=== PATIENT | male | born 1930 | race Caucasian/White ===

== ENCOUNTER → 2016-04-14 | Outpatient (CLI) | payer MEDICARE, OTHER ==
[~2016-04-14] MED LIST: ACET-2267 PO; ACHYD1T PO; ASPI-983 PO; CLOP75TA28 PO; DONE10TA12 PO; DOXY100C42 PO; ENOX40DI8 SC; ESCI10TA PO; FENO135C PO; FENO135C4 PO; FURO40TA4 PO; GLMP4T PO; GUAI5SYR PO; HYDR453.3 TOP; INSU100I14 SC; INSU100I5 SC; INSU100V16 SC; INSU100V16 SQ; INSU100V5 SC; INSU100V5 SQ; INSU100V6 SQ; LIRA0.6P SQ; MAG30ORA2 PO; METO-272 PO; MTF500T PO; MULT-166 PO; OLME20TA5 PO; ONDA4TAB8 PO; PHEN100T26 PO; PHEN200T27 PO; POVI3780 TP; PROM25SU43 RC; RIVA1PAT3 TD; RIVA6CAP5 PO; SERT100T8 PO; SULF-222 PO; TOLTA4 PO
--- NOTE | 2016-04-14 15:20 | Diagnostic Imaging Report ---
PROCEDURE: US Bilateral lower extremity arterial. TECHNIQUE: Multiple real-time grayscale images are obtained through both lower extremity arterial systems with color Doppler imaging and color Doppler spectral analysis. INDICATION: Left foot ulcer. COMPARISON: There are no previous studies available for comparison. FINDINGS: There is fairly good arterial blood flow in the left common femoral, superficial femoral, and popliteal arteries. Biphasic waveforms are seen within these vessels and there is no abrupt alteration of the velocities to suggest a hemodynamically significant stenosis. However, there does seem to be diminished velocity in the trifurcation arteries on the left and the waveforms are dampened and monophasic. I am concerned that this is secondary to trifurcation disease. There is fairly good arterial blood flow through the right lower extremity. Triphasic and biphasic waveforms are seen and there is no abrupt alteration to suggest a hemodynamically significant stenosis. IMPRESSION: 1. There does appear to be diminished arterial blood flow to the left lower leg. Most likely, this is due to a hemodynamically significant stenosis involving the trifurcation. If further imaging is desired, then CTA of the aorta with bilateral runoffs would be recommended. 2. There is no evidence for hemodynamically significant stenosis of the right lower extremity. Dictated by: Dictated on workstation # [id number]
== END ==
LOC: RAD 13:45
PROVIDERS: ATTEND Surgery
DX: L97.522 Non-pressure chronic ulcer of other part of left foot with fat layer exposed (principal); I73.9 Peripheral vascular disease, unspecified
CPT/HCPCS: 93925

== ENCOUNTER 2016-06-09 10:36 | Inpatient (IN) | payer MEDICARE, OTHER ==
[~2016-06-09] VITALS: Ht 188 cm; Wt 98.8 kg
[~2016-06-09 10:36] MED LIST changes: -ASPI-983 PO; -CLOP75TA28 PO; -DONE10TA12 PO; -DOXY100C42 PO; -ENOX40DI8 SC; -INSU100V6 SQ; -POVI3780 TP
[2016-06-09] MEDS ORDERED: PIPERACILLIN/TAZOBACTAM 4.5 GM/NS100 ML IVPB IV NR ×2 (11:30)
--- NOTE | 2016-06-09 11:42 | Consultation-Cardiology ---
HPI-Cardiology Cardiology Consultation: Date of Consultation 06/09/16 Date of Admission 06-09-16 Attending Physician Felton Mejia MD Admitting Physician Felton Mejia MD Consulting Physician Alex Mccarthy MD HPI: Chief Complaint: Left foot non-healing wound Mr. Pierce is an 85 year old male admitted to [facility] from [facility] where he resides. He has been following with Dr. Arndt d/t a non-healing left foot ulcer. The patient is unclear on how long he has had the wound. He states he is able to ambulate with the assistance of a walker. He does not report any dyspnea, palpitations or chest pain. Review of Systems-Cardiology Review of Systems Constitutional: As described under HPI Eyes: No blurred vision, No drainage, No pain, No vision change Ears/Nose/Throat: No ear discharge, No ear pain, No nasal drainage, No ulcerations Respiratory: As described under HPI Cardiovascular: As described under HPI Gastrointestinal: No constipation, No diarrhea, No nausea, No vomiting, No stool coloration changes Genitourinary: No dysuria, No discharge, No frequency, No hematuria, No urgency Skin: No rash, other (non-healing ulcer to left foot), No skin related problems Psychiatric/Neurological: No anxiety, No depression, No focal weakness, No seizure, No syncope Hematologic: No bleeding abnormalities XID-Ujcsnu-Wrbpuc Hx Patient Social History Alcohol Use: Denies Use Recreational Drug Use: No Smoking Status: Never a Smoker Recent Foreign Travel: No Recent Infectious Disease Expo: No Hospitalization with Isolation: Denies Physical Abuse Screen: No Sexual Abuse: No Immunizations Up To Date Tetanus Booster (TDap): Unknown Date of Pneumonia Vaccine: Feb 02, 2012 Date of Influenza Vaccine: Nov 18, 2014 Past Medical History PMH As described under Assessment. Family Medical History Family Medical History: He denies any family h/o CAD. Family History: Patient reports no known family medical history. Allergies and Home Medications Allergies Coded Allergies: NKANo Known Allergies (Verified Allergy, Unknown, 01/15/07) Home Medications Acetaminophen 500 Mg Tablet, 1,000 MG PO Q4H PRN for PAIN, (Reported) TAKES 2 (500MG) TABLETS Escitalopram Oxalate 10 Mg Tablet, 10 MG PO DAILY, (Reported) Fenofibric Acid (Choline) 135 Mg Capsule.dr, 135 MG PO DAILY, (Reported) Guaifenesin/Dextromethorphan 5 Ml Syrup, 10 ML PO Q4H PRN for COUGH, (Reported) Hydrocortisone 453.6 Gm Cream..g., TOP DAILY PRN for DERMATITIS, (Reported) Insulin Aspart 100 Unit/1 Ml Insuln.pen, 30 UNIT SC DAILY @ 0730, (Reported) Insulin Aspart 100 Unit/1 Ml Susp, 15 UNITS SC DAILY @ 1700, (Reported) Insulin Aspart 100 Unit/1 Ml Susp, 25 UNIT SQ DAILY @ 1130, (Reported) Insulin Determir 1,000 Units/10 Ml Soln, 55 UNITS SQ DAILY, (Reported) Insulin Determir 1,000 Units/10 Ml Soln, 35 UNITS SC DAILY @ 1700, (Reported) Mag Hydrox/Al Hydrox/Simeth 30 Ml Oral.susp, 20 ML PO Q4H PRN for INDIGESTION, ( Reported) Multivitamin with Minerals 1 Each Tablet, 1 TAB PO DAILY, (Reported) Ondansetron 4 Mg Tab.rapdis, 4 MG PO Q4H, #10 Prescribed by: EDIN LEON on 09/19/152138 Phenazopyridine Hcl 200 Mg Tablet, 200 MG PO TID PRN for URINARY PAIN, (Reported ) Rivastigmine Tartrate 6 Mg Capsule, 6 MG PO BID, (Reported) Physical Exam-Cardiology Physical Exam Vital Signs/I&O Vital Sign - Last 12Hours 06/09/16 12:00 Temp 96.6 Pulse 79 Resp 22 B/P (MAP) 137/68 Pulse Ox 99 O2 Delivery Room Air Capillary Refill : Constitutional: appears stated age, No apparent distress, well-developed, well- nourished HEENT: PERRL, No discharge, hearing is well preserved, oral hygience is good, No ulceration, No xanthelasmas are seen Neck: No carotid bruit, carotid pulses are 2 + bilaterally Respiratory: No accessory muscle use, No respiratory distress, lungs clear to auscultation Cardiovascular: regular rate-rhythm, No JVD, S1 and S2 Gastrointestinal: No tender, soft, round, No spleenomegaly Extremities: No clubbing, No cyanosis, No significant edema, wound (left foot; dressing D&I; dressing not removed - foul odor is noted though) Neurologic/Psychiatric: alert, oriented x 3, power is 5/5 both on sides Skin: No rash, No ulcerations Data Review Labs Laboratory Tests 06/09/16 11:35: White Blood Count 6.5, Red Blood Count 2.96L, Hemoglobin 10.1L, Hematocrit 29L, Mean Corpuscular Volume 98, Mean Corpuscular Hemoglobin 34, Mean Corpuscular Hemoglobin Concent 35, Red Cell Distribution Width 13.2, Platelet Count 248, Mean Platelet Volume 10.0, Sodium Level 132L, Potassium Level 4.5, Chloride Level 98, Carbon Dioxide Level 21, Anion Gap 13, Blood Urea Nitrogen 34H, Creatinine 1.99H, Estimat Glomerular Filtration Rate 32, BUN/Creatinine Ratio 17 , Glucose Level 230H, Calcium Level 9.0, Total Bilirubin 0.4, Aspartate Amino Transf (AST/SGOT) 16, Alanine Aminotransferase (ALT/SGPT) 13, Alkaline Phosphatase 84, Total Protein 6.8, Albumin 3.3 Pending Radiology N A/P-Cardiology Assessment/Admission Diagnosis Non-healing left foot ulcer, likely due to DM and PAD - being managed by Dr. Arndt PAD, severe, as indicated by arterial u/s of Mar 2016 that showed severe trifurcation disease on the L, and JESSI of May 2016 that showed JESSI of 0.55 on the L Diabetes II - insulin-requiring - managed by his PCP CKD - stage IV, likely diabetic nephropathy Echo of Mar [address] Mejia: Biventricular systolic function is hyperkinetic with estimated left ejection fraction of 75%. Mild concentric left ventricular hypertrophy is present with evidence for diastolic dysfunction on Doppler interrogation of left ventricular inflow. Cardiac chamber dimensions are all at the upper limits of normal in size. The aortic root was mildly dilated 3.9 cm in diameter. The proximal portion of the ascending aorta did not appear to be dilated and there was not evidence for significant aortic insufficiency. Mild tricuspid insufficiency is present with an estimated peak systolic pressure of 30 mmHg, at the upper limits normal Discussion and Recomendations See under Physician Assessment below Physician Assessment Physician Assessment Lungs: good bilat air entry Cor: reg A&R * As documented in our note above that I updated at the time of this writing * I have discussed his case with him and with Dr Arndt and with Dr Mejia * Will proceed with peripheral angio (and ad hoc intervention, if needed). Risk of contrast nephropathy is much higher than usual, given baseline CKD-4. Nevertheless, all physicians agree on the necessity of the procedure. I have discussed this in detail with Mr Pierce. He agrees, but wishes to talk it over further with Dr Mejia. We are tentatively scheduling for tomorrow. Vigorous perioperative hydration is planned and is being initiated [facility] Jun 09, 2016 11:42 ALEX MCCARTHY MD FACP FAC CCDS Jun 09, 2016 12:40
[2016-06-09 11:46] LABS: RED BLOOD COUNT 2.96 10^6/uL (4.35-5.85); RED CELL DISTRIBUTION WIDTH 13.2 % (10.0-14.5); WHITE BLOOD COUNT 6.5 10^3/uL (4.3-11.0)
[2016-06-09 12:00] VITALS: BP 137/68
[2016-06-09 12:11] LABS: ALBUMIN 3.3 G/DL (3.2-4.5); BILIRUBIN,TOTAL 0.4 MG/DL (0.1-1.0); CREATININE SERUM 1.99 MG/DL (0.60-1.30); POTASSIUM 4.5 MMOL/L (3.6-5.0); TOTAL PROTEIN 6.8 G/DL (6.4-8.2)
[2016-06-09] MEDS ORDERED: INSU100V16 SQ (12:37)
[2016-06-09] MEDS ORDERED: DONE10TA12 PO (12:37)
[2016-06-09] MEDS ORDERED: INSU100V6 SQ ×2 (12:37)
[2016-06-09] MEDS ORDERED: POVI3780 TP (12:37)
[2016-06-09] MEDS ORDERED: ONDA4TAB8 PO (12:37)
[2016-06-09] MEDS: VANCOMYCIN 1500 MG/NS 500 ML IVPB IV SCH ×2 (12:55)
[2016-06-09] MEDS: NS IV 1000 ML 1,000 ML IV SCH ×2 (13:23→22:12)
[2016-06-09] MEDS ORDERED: CATHETER FLUSH 10 ML SYR IV PRN (14:45)
[2016-06-09 16:00] VITALS: BP 134/62
[2016-06-09] MEDS ORDERED: ONDANSETRON 4 MG (ZOFRAN) ORAL DISSOLVE TAB PO PRN (16:15)
--- NOTE | 2016-06-09 17:27 | History & Physical-Hospitalist ---
HPI History of Present Illness: HPI/Chief Complaint Mr. Pierce is an 85-year-old white male with long-standing hypertension and type II diabetes mellitus who's had nonhealing the left foot ulcer on the left great toe and left heel. He is being followed by our oil fire specialist Dr. Espinal who after today's visit noted progression of erythema with increased drainage is malodorous. He had the appearance of increasing infection now. JESSI studies are suggestive of significant peripheral vascular disease as well around 0.5. The wound is deep enough that osteomyelitis is a concern for all these reasons treatment of cellulitis versus osteomyelitis and to facilitate angiography with consideration for for revascularization patient is being admitted. Patient does have a history of peripheral neuropathy and has been [facility] resident for several years. 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 Previous to [facility] placement he had had a long history of uncontrolled diabetes due to noncompliance he's had a previous history of depression but is been under control essentially remission since he's been under [facility] care. He's had several bouts of presumed diverticulitis treated with antibiotic therapy and has had several urinary tract infection. He has no past history of amputation and had no previous history of foot ulceration. Date Seen 06/09/16 Attending Physician Felton Ryan MD PCP Felton Ryan MD Referring Physician Date of Admission Jun 09, 2016 at 10:36 Home Medications & Allergies Home Medications Reviewed patient Home Medication Reconciliation Form Allergies Allergies Coded Allergies NKANo Known Allergies (Verified Allergy, Unknown, 01/15/07) Past Pqtryio-Uzaxbg-Pnmmfk Hx Patient Social History Alcohol Use: Denies Use Recreational Drug Use: No Smoking Status: Never a Smoker Physical Abuse Screen: No Sexual Abuse: No Recent Foreign Travel: No Contact w/other who traveled: No Recent Hopitalizations: Yes Recent Infectious Disease Expo: No Immunizations Up To Date Tetanus Booster (TDap): Unknown Date of Pneumonia Vaccine: Feb 02, 2012 Date of Influenza Vaccine: Jan 27, 2016 Seasonal Allergies Seasonal Allergies: No Surgeries HX Surgeries: Yes Surgeries: Gallbladder Respiratory Hx Respiratory Disorders: No Cardiovascular Hx Cardiovascular Disorders: Yes (ARRHYTHMIA, HYPERKALEMIA DUE TO CHRONIC RENAL FAILURE) Cardiac Disorders: Cardiomyopathy, High Cholesterol, Hypertension, Irregular Heartbeat Neurological Hx Neurological Disorders: Yes Neurological Disorders: Dementia Reproductive System Hx Reproductive Disorders: No Sexually Transmitted Disease: No HIV/AIDS: No Genitourinary Hx Genitourinary Disorders: Yes (DIABETIC NEPHROPATHY; OVERACTIVE BLADDER/ INCONTINENCE) Genitourinary Disorders: Bladder Infection, Renal Failure Gastrointestinal Hx Gastrointestinal Disorders: Yes Gastrointestinal Disorders: Gastroesophageal Reflux Musculoskeletal Hx Musculoskeletal Disorders: Yes (POOR AMBULATION; CHRONIC GENERALIZED PAIN) Musculoskeletal Disorders: Chronic Back Pain Endocrine Hx Endocrine Disorders: Yes (IDDM) Endocrine Disorders: Diabetes, Non-Insulin dep HEENT HX ENT Disorders: Yes (DYSPHAGIA) Loss of Vision: Denies Hearing Impairment: Denies Cancer Hx Cancer: No Psychosocial Hx Psychiatric Problems: Yes Behavioral Health Disorders: Anxiety Integumentary HX Skin/Integumentary Disorder: No Skin/Integumentary Disorders: Recent Skin Changes Blood Transfusions Hx Blood Disorders: No Family Medical History Family Hx: Patient reports no known family medical history. Review of Systems Constitutional: no symptoms reported, No see HPI, No chills, No diaphoresis, No dizziness, No fever, No malaise, No weakness, No weight gain, No weight loss Respiratory: No no symptoms reported, cough (Mild dry cough), No dyspnea on exertion, No hemoptysis, No orthopnea, No phlegm, No short of breath, No wheezing Cardiovascular: No chest pain, No edema, No Hx of Intervention, No palpitations , No syncope, No vascular heart diseas Gastrointestinal: No abdominal pain, No constipation, No diarrhea, No hematemesis, No heartburn, No loss of appetite, No melena, No nausea, No vomiting Genitourinary: No dysuria, No frequency, No hematuria, No hesitancy, incontinence (urge), nocturia Physical Exam Physical Exam Vital Signs Vital Sign - Last 12Hours 06/09/16 06/09/16 11:30 12:00 Temp 96.6 Pulse 79 Resp 22 B/P (MAP) 137/68 Pulse Ox 95 O2 Delivery Room Air Capillary Refill : General Appearance: No Apparent Distress, Chronically ill HEENT: Pharynx Normal, Pale Conjunctivae (L), Pale Conjunctivae (R) Respiratory: Chest Non Tender, Lungs Clear, Normal Breath Sounds, No Accessory Muscle Use, No Respiratory Distress Cardiovascular: Regular Rate, Rhythm, No Edema, No Gallop, No JVD, No Murmur Gastrointestinal: Normal Bowel Sounds, No Organomegaly, No Pulsatile Mass, Non Tender, Soft Extremity: No Pedal Edema, Other (Left foot is wrapped including toes. There is a somewhat foul odor noted right foot reveals onychomycosis the foot is warm but unable to appreciate dorsalis pedis or posterior tibial pulses. No evidence for edema is noted no ulcerations are noted.) Neurologic/Psychiatric: Alert, Normal Mood/Affect, Other (Unit 2) Results Results/Procedures Lab Laboratory Tests 06/09/16 11:35 06/10/16 04:07 Assessment/Plan Admission Diagnosis 1. Diabetic foot ulceration likely polymicrobial with secondary infection and concern for osteomyelitis likely aggravated by peripheral vascular disease. While he currently qualifies for stage IV chronic renal disease will initiate IV fluids and as long as there is improvement in renal function will continue and advised proceeding with arteriography. The patient has mild dementia is oriented 2. We discussed the fact that if he has significant peripheral vascular disease which is likely his ulcerations will not heal and this infection will lead to the need for amputation. He understands that there is risk for progression of his renal disease with the small but real possibility of dialysis. In my estimation however the benefits are outweighed by this risk and may be his only hope at saving his leg and would be is only hope at maintaining ambulatory status which is of utmost importance to him. 2. After discussion as has been the case will continue DO NOT RESUSCITATE DO NOT intubate status. Clinical Quality Measures DVT/VTE Risk/Contraindication: Risk Factor Score Per Nursin RFS Level Per Nursing on Admit: 4+=Very High FELTON RYAN MD Jun 09, 2016 17:27
[2016-06-09] MEDS: inSUlin ASPART (NovoLOG) 1 UNIT/0.01 ML (CHARGE PER UNIT) SQ SCH (17:41)
[2016-06-09 20:00] VITALS: BP 137/66
[2016-06-09] MEDS: DONEPEZIL 10 MG (ARICEPT) TAB PO SCH (20:53)
[2016-06-09] MEDS: PIPERACILLIN/TAZOBACTAM 4.5 GM/NS 100 ML IVPB IV SCH ×2 (22:19)
[2016-06-10] VITALS (16 sets, daily range): BP systolic 96–133; BP diastolic 50–65
[2016-06-10 04:28] LABS: BASOPHILS % (AUTO) 0 % (0-10); EOSINOPHILS # (AUTO) 0.3 10^3/uL (0.0-0.3); EOSINOPHILS % (AUTO) 5 % (0-10); LYMPHOCYTES % (AUTO) 31 % (12-44); MEAN CORPUSCULAR HEMOGLOBIN 33 PG (25-34); MEAN CORPUSCULAR HGB CONC 34 G/DL (32-36); MEAN CORPUSCULAR VOLUME 99 FL (80-99); MEAN PLATELET VOLUME 9.9 FL (7.4-10.4); MONOCYTES # (AUTO) 0.9 X 10^3 (0.0-1.0); MONOCYTES % (AUTO) 14 % (0-12); NEUTROPHILS # (AUTO) 3.2 X 10^3 (1.8-7.8); NEUTROPHILS % (AUTO) 50 % (42-75); PLATELET COUNT 235 10^3/uL (130-400); RED BLOOD COUNT 2.83 10^6/uL (4.35-5.85); RED CELL DISTRIBUTION WIDTH 13.3 % (10.0-14.5); WHITE BLOOD COUNT 6.4 10^3/uL (4.3-11.0)
[2016-06-10 04:50] LABS: CALCIUM 8.3 MG/DL (8.5-10.1); CREATININE SERUM 1.88 MG/DL (0.60-1.30); MAGNESIUM 1.7 MG/DL (1.8-2.4); POTASSIUM 5.2 MMOL/L (3.6-5.0)
[2016-06-10] MEDS: NS IV 1000 ML 1,000 ML IV SCH ×4 (04:56→17:11)
[2016-06-10] MEDS: PIPERACILLIN/TAZOBACTAM 4.5 GM/NS 100 ML IVPB IV SCH ×4 (06:33→17:13)
[2016-06-10] MEDS ORDERED: LIDOCAINE 1% INJ 20 ML (XYLOCAINE) VIAL ONE (07:13)
[2016-06-10] MEDS ORDERED: HEParin (CATH LAB) 2,000 ML IV ONE (07:14)
[2016-06-10] MEDS ORDERED: LIDOCAINE TOPICAL 4% 50 ML BTL TP ONE (08:30)
[2016-06-10] MEDS: MULTIVIT W/MINERALS TAB (THERAGRAN M) PO SCH (09:00)
[2016-06-10] MEDS: inSUlin ASPART (NovoLOG) 1 UNIT/0.01 ML (CHARGE PER UNIT) SC SCH (09:37)
[2016-06-10] MEDS: inSUlin DETERMIR 1 UNIT/0.01 ML (LEVEMIR) CHARGE PER UNIT SQ SCH (09:40)
[2016-06-10] MEDS ORDERED: fentaNYL INJECTION 100 MCG/2 ML AMP ONE (10:36)
[2016-06-10] MEDS ORDERED: diphenhydrAMINE 50 MG/ML INJ (BENADRYL) ONE (10:36)
[2016-06-10] MEDS ORDERED: MIDAZOLAM 5 MG/5 ML (VERSED) VIAL ONE (10:36)
[2016-06-10] MEDS: inSUlin ASPART (NovoLOG) 1 UNIT/0.01 ML (CHARGE PER UNIT) SQ SCH ×2 (11:10→17:24)
--- NOTE | 2016-06-10 11:11 | Cardiac Procedure Note-CS/ASA ---
Pre-Procedure Note Pre-Op Procedure Note H&P Reviewed The H&P was reviewed, patient examined and no changes noted. Date H&P Reviewed: Jun 10, 2016 Time H&P Reviewed: 11:11 Conscious Sedation Pre-Proced Time Reviewed: 11:11 ASA Class: 4 Airway Mallampati Classification: (anvik appropriate class) I. II. III, IV Lungs Heart ASA score ASA 1: a normal healthy patient ASA 2: a patient with a mild systemic disease (mid diabetes, controlled hypertension, obesity ASA 3: a patient with a severe systemic disease that limits activity (angina , COPD, prior Myocardial infarction) ASA 4: a patient with an incapacitating disease that is a constant threat to life (CHF, renal failure) ASA 5: a moribund patient not expected to survive 24 hrs. (ruptured aneurysm) ASA 6: a declared brain patient whose organs are being harvested. For emergent operations, add the letter E after the classification Grade 2 Sedation Plan: Analgesia, Amnesia, Plan communicated to team members, Discussed options with patient/fam, Discussed risks with patient/fam Note The patient is an appropriate candidate to undergo the planned procedure, sedation, and anesthesia. The patient immediately re-assessed prior to indication. KELSEY MONTANA MD FACP FAC CCDS Jun 10, 2016 11:11
[2016-06-10] MEDS ORDERED: NS IV 1000 ML 1,000 ML ONE (11:12)
[2016-06-10] MEDS ORDERED: HEParin 1000 UNIT/ML (10ML VIAL) FOR BOLUS ONE (12:05)
[2016-06-10] MEDS ORDERED: NITROGLYCERIN DRIP 25 MG/D5W 250 ML IV ONE (12:53)
[2016-06-10] MEDS ORDERED: ASPIRIN 81 MG CHEW (CHILDREN'S ASA) ONE (13:17)
[2016-06-10] MEDS ORDERED: CLOPIDOGREL 300 MG (PLAVIX) TABLET PO ONE (13:17)
[2016-06-10] MEDS ORDERED: NS IV 1000 ML 1,000 ML IV SCH (13:27)
[2016-06-10] MEDS ORDERED: PATIENT MAY USE OWN MEDS, ALL PO SCH (13:30)
--- NOTE | 2016-06-10 13:39 | Progress Note-Cardiology ---
Cardiology SOAP Progress Note Subjective: He does not report new symptoms Denies cp or palp or syncope Denies leg pain Objective: I&O/Vital Signs Vital Sign - Last 12Hours 06/10/16 06/10/16 04:00 08:00 Temp 99.1 97.7 Pulse 75 78 Resp 16 18 B/P (MAP) 120/65 127/64 Pulse Ox 94 94 O2 Delivery Room Air Room Air Intake and Output 06/10/16 00:00 Intake Total 1295 ml Balance 1295 ml Weight (Pounds): 217 Weight (Ounces): 8.0 Weight (Calculated Kilograms): 98.480211 Constitutional: appears stated age, No apparent distress, well-developed, well- nourished Respiratory: No accessory muscle use, No respiratory distress, lungs clear to auscultation Cardiovascular: regular rate-rhythm, No JVD, S1 and S2 Gastrointestional: No tender, soft, round, No spleenomegaly Extremities: No clubbing, No cyanosis, No significant edema, wound (left foot; dressing D&I; dressing not removed - foul odor is noted though) Neurologic/Psychiatric: alert, oriented x 3, power is 5/5 both on sides Skin: No rash, No ulcerations Results/Procedures: Labs Laboratory Tests 06/09/16 16:34: Glucometer 227H 06/09/16 20:41: Glucometer 170H 06/10/16 04:07: White Blood Count 6.4, Red Blood Count 2.83L, Hemoglobin 9.4L, Hematocrit 28L, Mean Corpuscular Volume 99, Mean Corpuscular Hemoglobin 33, Mean Corpuscular Hemoglobin Concent 34, Red Cell Distribution Width 13.3, Platelet Count 235, Mean Platelet Volume 9.9, Neutrophils (%) (Auto) 50, Lymphocytes (%) (Auto) 31, Monocytes (%) (Auto) 14H, Eosinophils (%) (Auto) 5, Basophils (%) (Auto) 0, Neutrophils # (Auto) 3.2, Lymphocytes # (Auto) 2.0, Monocytes # (Auto) 0.9, Eosinophils # (Auto) 0.3, Basophils # (Auto) 0.0, Sodium Level 135, Potassium Level 5.2H, Chloride Level 105, Carbon Dioxide Level 19L, Anion Gap 11, Blood Urea Nitrogen 34H, Creatinine 1.88H, Estimat Glomerular Filtration Rate 34, BUN/ Creatinine Ratio 18, Glucose Level 149H, Calcium Level 8.3L, Magnesium Level 1.7L Laboratory Tests 06/09/16 11:35 06/10/16 04:07 A/P: Assessment: Non-healing left heal ulcer, likely due to DM and PAD - being managed by Dr. Arndt PAD, primarily L-sided, based on noninvasive w/u of Mar and May 2016: angiography on 06/10/16 showed that the inflow vessels and sup fem and the popliteal on the L were without any significant disease; there was total proximal occlusion of the L posterior tibial with distal collateralization form patent L peroneal and L ant tibial arteries; he underwent successful balloon angioplasty to the L posterior tibial with catholic of antegrade blood flow in that vessel down to the level of the ankle Mild dementia Diabetes II - insulin-requiring - managed by his PCP CKD - stage IV, likely diabetic nephropathy Echo of Mar [address] Mejia: Biventricular systolic function is hyperkinetic with estimated left ejection fraction of 75%. Mild concentric left ventricular hypertrophy is present with evidence for diastolic dysfunction on Doppler interrogation of left ventricular inflow. Cardiac chamber dimensions are all at the upper limits of normal in size. The aortic root was mildly dilated 3.9 cm in diameter. The proximal portion of the ascending aorta did not appear to be dilated and there was not evidence for significant aortic insufficiency. Mild tricuspid insufficiency is present with an estimated peak systolic pressure of 30 mmHg, at the upper limits normal Plan: I discussed the results of angio with Dr Espinal, his wound physician. Dr Espinal felt that it would be best to proceed with intervention to the L post tibial because pt was at risk of L foot amputation. We proceeded accordingly, with good results (see above). Antegrade flow has been restored to he L post tibial following today's intervention We have initiated antiplatelet therapy with aspirin and clopidogrel We are continuing vigorous periop hydration to reduce risk of contrast nephropathy Close f/u is advised on lab work I discussed findings and interventions with KELSEY Crystal MD FACP [facility] Jun 10, 2016 13:39
--- NOTE | 2016-06-10 16:48 | Progress Note-Hospitalist ---
Subjective HPI/CC On Admission Mr. Pierce is an 85-year-old white male with long-standing hypertension and type II diabetes mellitus who's had nonhealing the left foot ulcer on the left great toe and left heel. He is being followed by our testing specialist Dr. Espinal who after today's visit noted progression of erythema with increased drainage is malodorous. He had the appearance of increasing infection now. JESSI studies are suggestive of significant peripheral vascular disease as well around 0.5. The wound is deep enough that osteomyelitis is a concern for all these reasons treatment of cellulitis versus osteomyelitis and to facilitate angiography with consideration for for revascularization patient is being admitted. Patient does have a history of peripheral neuropathy and has been [facility]. 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 Previous to [facility] placement he had had a long history of uncontrolled diabetes due to noncompliance he's had a previous history of depression but is been under control essentially remission since he's been under [facility] care. He's had several bouts of presumed diverticulitis treated with antibiotic therapy and has had several urinary tract infection. He has no past history of amputation and had no previous history of foot ulceration. Date Seen 06/10/16 Subjective/Events-last exam patient was sleeping post left posterior tibial artery angioplasty. He arouses easily and voices no complaints. Reports he is little bit hungry. He denies any nausea and denies any groin or foot discomfort. He also denies shortness of breath. Objective Exam Vital Signs Vital Sign - Last 12Hours 06/09/16 06/09/16 11:30 12:00 Temp 96.6 Pulse 79 Resp 22 B/P (MAP) 137/68 Pulse Ox 95 O2 Delivery Room Air Capillary Refill : Less Than 3 Seconds General Appearance: No Apparent Distress, Chronically ill Respiratory: Lungs Clear, Normal Breath Sounds, No Accessory Muscle Use, No Respiratory Distress Cardiovascular: Regular Rate, Rhythm, No Edema, No Gallop, No JVD, No Murmur Gastrointestinal: Normal Bowel Sounds, No Organomegaly, No Pulsatile Mass, Non Tender, Soft Extremity: Other (left foot wrapped right groin puncture site reveals no evidence for hematoma is soft right foot is warm unable to appreciate posterior tibial or dorsalis pedis pulses.) Neurologic/Psychiatric: Alert Results/Procedures Lab Laboratory Tests 06/10/16 04:07 Assessment/Plan Assessment and Plan Assess & Plan/Chief Complaint 1. Left diabetic foot infection can't rule out the possibility of osteomyelitis involving the left great toe aggravated by peripheral vascular disease status post successful left posterior tibial angioplasty. 2. Stage IV chronic renal disease continue IV hydration and monitoring for contrast nephropathy. 3. Type II diabetes mellitus JOSE RYAN MD Jun 10, 2016 16:48
[2016-06-10] MEDS: ENOXAPARIN 40 MG/0.4 ML (LOVENOX) SYR SC SCH (17:13)
[2016-06-10] MEDS: VANCOMYCIN 1500 MG/NS 500 ML IVPB IV SCH ×2 (17:14)
--- NOTE | 2016-06-10 21:09 | Wound Care Progress Note ---
Subjective Subjective Subjective/Events-last exam 85 year old male admitted from [facility] with rapidly deteriorating necrotic ulcer of L heel, in a setting of arterial insufficiency. The base of the wound is necrotic and has a foul odor. The periwound was red on admission, but has improved with IV Zosyn and Vancomycin. Debridement of the necrotic tissue to unroof the infected tissue has been discussed with, recommended to, and accepted by the patient and his son. PMH: HTN, DM, CRF, Peripheral neuropathy, vascular dementia, Cardiomyopathy. FH: None pertinent. SH: Non-smoker, , lives at [facility]. Review of Systems General: No Chills, No Night Sweats HEENT: No Visual Changes Pulmonary: No Dyspnea, Cough Cardiovascular: Palpitations, No: Chest Pain Gastrointestinal: Other (History of diverticulitis. Gastroesophageal reflux), No: Abdominal Pain, Nausea, Vomiting Genitourinary: Incontinence Musculoskeletal: back pain Objective Exam Last Set of Vital Signs Vital Signs Date Time Temp Pulse Resp B/P (MAP) Pulse Ox O2 Delivery O2 Flow Rate FiO2 06/10/16 20:00 98.0 77 18 110/56 96 Room Air Capillary Refill : Less Than 3 Seconds I&O Bad tableGeneral: Alert, Cooperative, Other (mildly disoriented, confabulates.) HEENT: Atraumatic Neck: Supple Lungs: Normal Air Movement Abdomen: Soft Extremities: Other (no palpable pedal pulses.) Skin: Other (left heel ulcer -- 6.5 x 4.9 x 0.6 cm, base 50% slough, 50% eschar, thin the foul-smelling fluid drainage. -- Left great toe -- 1.8 x 1.4 x 0.1 100% eschar no drainage.) Neuro: Other (walks with assistance.) Psych/Mental Status: Mood NL, Other (mildly confused.) Results Lab Laboratory Tests 06/10/16 04:07: White Blood Count 6.4, Red Blood Count 2.83L, Hemoglobin 9.4L, Hematocrit 28L, Mean Corpuscular Volume 99, Mean Corpuscular Hemoglobin 33, Mean Corpuscular Hemoglobin Concent 34, Red Cell Distribution Width 13.3, Platelet Count 235, Mean Platelet Volume 9.9, Neutrophils (%) (Auto) 50, Lymphocytes (%) (Auto) 31, Monocytes (%) (Auto) 14H, Eosinophils (%) (Auto) 5, Basophils (%) (Auto) 0, Neutrophils # (Auto) 3.2, Lymphocytes # (Auto) 2.0, Monocytes # (Auto) 0.9, Eosinophils # (Auto) 0.3, Basophils # (Auto) 0.0, Sodium Level 135, Potassium Level 5.2H, Chloride Level 105, Carbon Dioxide Level 19L, Anion Gap 11, Blood Urea Nitrogen 34H, Creatinine 1.88H, Estimat Glomerular Filtration Rate 34, BUN/ Creatinine Ratio 18, Glucose Level 149H, Calcium Level 8.3L, Magnesium Level 1.7L 06/10/16 17:15: Glucometer 105 Procedures Procedures Following appropriate timeout, with the patient in the right lateral decubitus position, under 4% lidocaine topical anesthetic, using forceps and a 15 blade scalpel, excisional debridement was carried out. Tissues removed included callus, skin, subcutaneous tissue, slough, eschar, necrotic fat. The deepest layer removed was subcutaneous tissue. Minimal bleeding was controlled with pressure. Sample of the deep tissue was obtained and submitted for culture. The patient tolerated the procedure well with minimal pain both during and after the procedure. A sterile pressure dressing was applied. Post-debridement measurements were 6.7 x 5.2 x 0.7 cm. Assessment/Plan Assessment/Plan Assessment/Plan 1. Left heel ulcer, full-thickness with exposed support structures. 2. Atherosclerotic peripheral arterial disease, with ulceration of left heel. 3. Diabetes mellitus, with left foot ulcer, grade 3. 4. Progressive cellulitis of left foot, currently receiving IV Zosyn and vancomycin. 5. Chronic renal failure, stage IV. 6. Vascular dementia. Plan: Debridement of involved necrotic tissue, and opening of the deeper spaces has been carried out. Deep tissue was submitted for culture. The patient will be continued on IV Zosyn and vancomycin, with good hydration to minimize risk of progressive renal failure in view of infection, contrast dye given, and IV vancomycin. BRENT FINCH MD Jun 10, 2016 21:08
[2016-06-10] MEDS: DONEPEZIL 10 MG (ARICEPT) TAB PO SCH (21:38)
[2016-06-11] VITALS: BP 133/69
[2016-06-11] MEDS: PIPERACILLIN/TAZOBACTAM 4.5 GM/NS 100 ML IVPB IV SCH ×6 (00:38→16:23)
[2016-06-11] MEDS: NS IV 1000 ML 1,000 ML IV SCH ×3 (02:38→15:32)
[2016-06-11 04:00] VITALS: BP 113/65
[2016-06-11 04:41] LABS: MEAN PLATELET VOLUME 10.2 FL (7.4-10.4); RED BLOOD COUNT 2.74 10^6/uL (4.35-5.85); RED CELL DISTRIBUTION WIDTH 13.5 % (10.0-14.5); WHITE BLOOD COUNT 5.4 10^3/uL (4.3-11.0)
[2016-06-11 05:12] LABS: CALCIUM 7.8 MG/DL (8.5-10.1); CREATININE SERUM 1.88 MG/DL (0.60-1.30); POTASSIUM 4.8 MMOL/L (3.6-5.0)
[2016-06-11] MEDS: POVIDONE (BETADINE) 10% SOLN 240 ML BTL TOP SCH (07:47)
[2016-06-11 08:00] VITALS: BP 133/60
[2016-06-11] MEDS: inSUlin ASPART (NovoLOG) 1 UNIT/0.01 ML (CHARGE PER UNIT) SC SCH (08:47)
[2016-06-11] MEDS: ASPIRIN E.C. 81 MG (ECOTRIN) TAB PO SCH (08:47)
[2016-06-11] MEDS: CLOPIDOGREL 75 MG (PLAVIX) TABLET PO SCH (08:47)
[2016-06-11] MEDS: inSUlin DETERMIR 1 UNIT/0.01 ML (LEVEMIR) CHARGE PER UNIT SQ SCH (08:47)
[2016-06-11] MEDS: MULTIVIT W/MINERALS TAB (THERAGRAN M) PO SCH (08:47)
[2016-06-11] MEDS: ACETAMINOPHEN 500 MG TAB (TYLENOL) PO PRN (08:48)
--- NOTE | 2016-06-11 10:15 | PROCEDURE REPORT ---
PROCEDURE PHYSICIAN: KELSEY [facility] PER[facility]HERAL ANGIOGRAPHY AND ANGIOPLASTY REPORT DATE OF PROCEDURE: 06/10/2016 PRIMARY PHYSICIAN: Dr. Mejia WOUND PHYSICIAN: Dr. Espinal Toan Pierce is an 85-year-old gentleman who has a nonhealing ulcer of the left heel and due to peripheral arterial disease and diabetes. He also suffers from chronic kidney disease stage IV. Because of nonhealing wound and impending left foot amputation, Dr. Arndt and Dr. Mejia were of the opinion that obtained angiography of the left leg should be carried out, with a possible peripheral arterial angioplasty, given that noninvasive work-up had shown considerable distal disease of the arterial circulation of the left leg. An informed consent was obtained. PROCEDURE: Beginning nearly 24 hours before the procedure, vigorous perioperative hydration had been initiated. This was continued throughout the procedure and is to be continued afterwards. The right groin was prepared and draped in usual sterile fashion. 1% lidocaine was used for local anesthesia. Modified Seldinger technique was used to advance a 5-Jordanian sheath in his right femoral artery. A 5-Jordanian crossover catheter was used for angiography of the inflow vessels of the left leg. A Storq wire was advanced into the left superficial femoral and the crossover catheter was exchanged for a straight catheter and angiography was performed of the left superficial femoral artery with runoff down to the level of the ankles. PERCUTANEOUS INTERVENTION TO THE LEFT POSTERIOR TIBIAL ARTERY: Following completion of diagnostic procedure, which indicated normal inflow vessels and normal left superficial femoral and popliteal arteries, but occluded left posterior tibial, we proceeded with percutaneous intervention to the left posterior tibial. I called Dr. Arndt prior to proceeding with the intervention and discussed the case with him in detail. Dr. Arndt felt that it would be imperative to try and open the posterior tibial because of impending left foot amputation and a nonhealing ulcer of the left heel, despite a 2 vessel runoff in the left leg. We advanced a Storq wire with the tip placed in the left popliteal and were then able to exchange the 5-Jordanian sheath over this wire for a long 6-Jordanian sheath. We used an angled glide catheter and, with the help of this, we were able to advance a command wire and were able to negotiate the total occlusion in the left posterior tibial and were able to place the distal part of the command wire in the distal part of the left posterior tibial. The angled glide was removed and we then carried out balloon angioplasty with Farrell 2.0 x 80 mm balloon throughout the extent of the posterior tibial artery. Multiple balloon inflations were carried out. Subsequent angiography revealed that the vessel was now opened. From a complete occlusion, we were able to improve the vessel to an open vessel with diffuse moderate to moderately severe disease. The vessel now has normal antegrade flow down to the level of its termination. The patient received a total of 6,000 units of intravenous heparin. He tolerated the procedure well. There were no apparent complications. The angioplasty equipment was removed. The sheath was exchanged over a wire for a short 6-Jordanian sheath and we were able to carry out angiography of the right common femoral artery and subsequently used Mynx to achieve hemostasis and transfer the patient out of the cardiac catheterization laboratory in a stable condition. LEFT LOWER LIMB ARTERIAL ANGIOGRAPHY: The left common iliac and external and internal iliacs are widely patent and free of significant disease. They do exhibit considerable tortuosity. The left common femoral, superficial femoral, deep femoral, and popliteal arteries are intact and do not exhibit any significant disease. The left posterior tibial artery is completely occluded but we were able to carry out successful balloon angioplasty of this vessel and were able to open it throughout its entire extent. The vessel has diffuse, moderate disease; it is a small caliber vessel. The left peroneal artery is intact. The anterior tibial artery is of a small caliber but is intact and has diffuse, moderate disease. At the end of today's interventional procedure, the patient had 3 vessel runoff in the left leg. CONCLUSIONS: Peripheral arterial disease, primarily consisting of total occlusion of the left posterior tibial artery to which successful balloon angioplasty was carried out with reduction of stenosis to approximately 50% and baptist of normal antegrade flow throughout the vessel. Job ID: [id number] Dictated Date: 06/10/2016 13:51:41 Market Editor Date: 06/11/2016 09:54:27 / jenny
[2016-06-11] MEDS ORDERED: TROUGH ORDER-PHARMACY XX NR (11:00)
[2016-06-11] MEDS: inSUlin ASPART (NovoLOG) 1 UNIT/0.01 ML (CHARGE PER UNIT) SQ SCH ×2 (11:43→16:23)
[2016-06-11 12:00] VITALS: BP 106/53
--- NOTE | 2016-06-11 12:26 | Progress Note-Hospitalist ---
Subjective HPI/CC On Admission Mr. Pierce is an 85-year-old white male with long-standing hypertension and type II diabetes mellitus who's had nonhealing the left foot ulcer on the left great toe and left heel. He is being followed by our clutch specialist Dr. Espinal who after today's visit noted progression of erythema with increased drainage is malodorous. He had the appearance of increasing infection now. JESSI studies are suggestive of significant peripheral vascular disease as well around 0.5. The wound is deep enough that osteomyelitis is a concern for all these reasons treatment of cellulitis versus osteomyelitis and to facilitate angiography with consideration for for revascularization patient is being admitted. Patient does have a history of peripheral neuropathy and has been [facility] for several years. 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 Previous to [facility] placement he had had a long history of uncontrolled diabetes due to noncompliance he's had a previous history of depression but is been under control essentially remission since he's been under [facility] care. He's had several bouts of presumed diverticulitis treated with antibiotic therapy and has had several urinary tract infection. He has no past history of amputation and had no previous history of foot ulceration. Date Seen 06/11/16 Subjective/Events-last exam patient sleeping soundly this morning appears to be in no acute distress. Objective Exam Vital Signs Vital Sign - Last 12Hours 06/09/16 06/09/16 11:30 12:00 Temp 96.6 Pulse 79 Resp 22 B/P (MAP) 137/68 Pulse Ox 95 O2 Delivery Room Air Capillary Refill : Less Than 3 Seconds General Appearance: No Apparent Distress, Chronically ill Respiratory: Lungs Clear, Normal Breath Sounds, No Accessory Muscle Use, No Respiratory Distress Cardiovascular: Regular Rate, Rhythm, No Edema, No Gallop, No JVD, No Murmur Extremity: Other (feet are warm with no evidence for edema.) Results/Procedures Lab Laboratory Tests 06/11/16 04:05 Assessment/Plan Assessment and Plan Assess & Plan/Chief Complaint 1. Left diabetic foot infection can't rule out the possibility of osteomyelitis involving the left great toe aggravated by peripheral vascular disease status post successful left posterior tibial angioplasty. 2. Stage IV chronic renal disease continue IV hydration and monitoring for contrast nephropathy. creatinine level slightly lower at 1.88 which is encouraging. We will decrease IV fluids slightly to 100 mL per hour. 3. Type II diabetes mellitus JOSE RYAN MD Jun 11, 2016 12:26
--- NOTE | 2016-06-11 15:41 | Progress Note-Cardiology ---
Cardiology SOAP Progress Note Subjective: He does not report cp or palp or syncope or leg pain Objective: I&O/Vital Signs Vital Sign - Last 12Hours 06/11/16 06/11/16 06/11/16 06/11/16 04:00 07:14 08:00 12:00 Temp 99.1 97.4 98.5 Pulse 75 69 74 70 Resp 18 18 16 B/P (MAP) 113/65 133/60 106/53 Pulse Ox 94 93 95 O2 Delivery Room Air Room Air Room Air 06/11/16 12:49 Pulse 72 Intake and Output 06/11/16 00:00 Intake Total 1994 ml Balance 1994 ml Weight (Pounds): 217 Weight (Ounces): 8.0 Weight (Calculated Kilograms): 98.751064 Groin site without hematoma: Yes Bruising: mild bruising Constitutional: appears stated age, No apparent distress, well-developed, well- nourished Respiratory: No accessory muscle use, No respiratory distress, lungs clear to auscultation Cardiovascular: regular rate-rhythm, No JVD, S1 and S2 Gastrointestional: No tender, soft, round, No spleenomegaly Extremities: No clubbing, No cyanosis, No significant edema, wound (left foot; dressing D&I; dressing not removed - foul odor is noted though) Neurologic/Psychiatric: alert, oriented x 3, power is 5/5 both on sides Skin: No rash, No ulcerations Results/Procedures: Labs Laboratory Tests 06/10/16 17:15: Glucometer 105 06/10/16 21:13: Glucometer 136H 06/11/16 04:05: White Blood Count 5.4, Red Blood Count 2.74L, Hemoglobin 9.1L, Hematocrit 28L, Mean Corpuscular Volume 101H, Mean Corpuscular Hemoglobin 33, Mean Corpuscular Hemoglobin Concent 33, Red Cell Distribution Width 13.5, Platelet Count 211, Mean Platelet Volume 10.2, Sodium Level 139, Potassium Level 4.8, Chloride Level 111H, Carbon Dioxide Level 20L, Anion Gap 8, Blood Urea Nitrogen 29H, Creatinine 1.88H, Estimat Glomerular Filtration Rate 34, BUN/Creatinine Ratio 15 , Glucose Level 109H, Calcium Level 7.8L 06/11/16 10:49: Glucometer 137H Microbiology 06/10/16 Gram Stain - Final, Resulted 06/10/16 Wound Culture - Preliminary, Resulted Proteus Species Probable Staph Aureus Laboratory Tests 06/10/16 04:07 06/11/16 04:05 A/P: Assessment: Non-healing left heal ulcer, likely due to DM and PAD - being managed by Dr. Arndt PAD, primarily L-sided, based on noninvasive w/u of Mar and May 2016: angiography on 06/10/16 showed that the inflow vessels and sup fem and the popliteal on the L were without any significant disease; there was total proximal occlusion of the L posterior tibial with distal collateralization form patent L peroneal and L ant tibial arteries; he underwent successful balloon angioplasty to the L posterior tibial with roman catholic of antegrade blood flow in that vessel down to the level of the ankle Mild dementia Diabetes II - insulin-requiring - managed by his PCP CKD - stage IV, likely diabetic nephropathy Echo of Mar [address] Mejia: Biventricular systolic function is hyperkinetic with estimated left ejection fraction of 75%. Mild concentric left ventricular hypertrophy is present with evidence for diastolic dysfunction on Doppler interrogation of left ventricular inflow. Cardiac chamber dimensions are all at the upper limits of normal in size. The aortic root was mildly dilated 3.9 cm in diameter. The proximal portion of the ascending aorta did not appear to be dilated and there was not evidence for significant aortic insufficiency. Mild tricuspid insufficiency is present with an estimated peak systolic pressure of 30 mmHg, at the upper limits normal Plan: Close f/u is advised on lab work I discussed findings and interventions with Mr Pierce I also discussed his case this morning with KELSEY Butler MD FACP [facility] Jun 11, 2016 15:41
[2016-06-11 16:00] VITALS: BP 121/60
[2016-06-11] MEDS: ENOXAPARIN 40 MG/0.4 ML (LOVENOX) SYR SC SCH (16:23)
[2016-06-11] MEDS: VANCOMYCIN 1500 MG/NS 500 ML IVPB IV SCH ×2 (16:23)
[2016-06-11 20:26] VITALS: BP 114/56
[2016-06-11] MEDS: DONEPEZIL 10 MG (ARICEPT) TAB PO SCH (20:50)
[2016-06-12] VITALS (7 sets, daily range): BP systolic 134–156; BP diastolic 55–71
[2016-06-12] MEDS: PIPERACILLIN/TAZOBACTAM 4.5 GM/NS 100 ML IVPB IV SCH ×6 (01:00→17:35)
[2016-06-12] MEDS: POVIDONE (BETADINE) 10% SOLN 240 ML BTL TOP SCH (05:05)
[2016-06-12 07:07] LABS: CALCIUM 7.8 MG/DL (8.5-10.1); CREATININE SERUM 1.92 MG/DL (0.60-1.30); POTASSIUM 4.4 MMOL/L (3.6-5.0)
[2016-06-12] MEDS: NS IV 1000 ML 1,000 ML IV SCH ×2 (07:24→17:35)
[2016-06-12] MEDS: MULTIVIT W/MINERALS TAB (THERAGRAN M) PO SCH (08:29)
[2016-06-12] MEDS: inSUlin ASPART (NovoLOG) 1 UNIT/0.01 ML (CHARGE PER UNIT) SC SCH (08:29)
[2016-06-12] MEDS: CLOPIDOGREL 75 MG (PLAVIX) TABLET PO SCH (08:29)
[2016-06-12] MEDS: inSUlin DETERMIR 1 UNIT/0.01 ML (LEVEMIR) CHARGE PER UNIT SQ SCH (08:29)
[2016-06-12] MEDS: ASPIRIN E.C. 81 MG (ECOTRIN) TAB PO SCH (08:29)
[2016-06-12] MEDS: ACETAMINOPHEN 500 MG TAB (TYLENOL) PO PRN (08:30)
--- OUTSIDE RECORDS SUMMARY | 2016-06-12 08:43 | XMS REPORT | Continuity of Care Document ---
Author Author [facility] Organization [facility] Address Unknown Phone Unavailable Allergies Active Description Code Type Severity Reaction Onset Reported/Identified Relationship to Patient Clinical Status Yes NKANo Known Allergies NKA Miscellaneous Allergy Unknown N/ A 01/15/2007 Medications Problems Date Dx Coded Attending Type Code Diagnosis Diagnosed By 08/10/2011 Ot 250.02 08/10/2011 Ot 276.51 08/10/2011 Ot 536.2 08/10/2011 Ot 584.9 08/10/2011 Ot 585.4 02/11/2014 STEF DELVALLE, BRENT Martins Ot 250.80 02/11/2014 STEF DELVALLE, BRENT Martins Ot 707.14 02/24/2014 STEF DELVALLE, BRENT Martins Ot 250.80 02/24/2014 STEF DEVLALLE, BRENT Martins Ot 707.14 03/03/2014 STEF DELVALLE, BRENT Martins Ot 250.80 03/03/2014 STEF DELVALLE, BRENT Martins Ot 707.14 03/04/2014 STEF DELVALLE, BRENT Martins Ot 250.80 03/04/2014 STEF DELVALLE, BRENT Martins Ot 707.14 03/17/2014 STEF DELVALLE, BRENT Martins Ot 250.80 03/17/2014 STEF DELVALLE, BRENT Martins Ot 707.14 03/21/2014 STEF DELVALLE, BRENT Martins Ot 250.80 03/21/2014 STEF DELVALLE, BRENT Martins Ot 707.14 03/26/2014 STEF DELVALLE, BRENT Martins Ot 250.80 03/26/2014 STEF DELVALLE, BRENT Martins Ot 707.14 04/01/2014 STEF DELVALLE, BRENT Martins Ot 250.80 DIAB W OTH SPEC MANIFEST, TYPE II OR UNS 04/01/2014 STEF DELVALLE, BRENT Martins Ot 707.14 ULCER OF HEEL AND MIDFOOT 04/19/2014 CONNOR DELVALLE, JOSE Sosa Ot 250.80 04/19/2014 CONNOR DELVALLE, JOSE Sosa Ot 707.14 04/28/2014 JOSE RYAN MD Ot 250.80 04/28/2014 CONNOR DELVALLE, JOSE Sosa Ot 707.14 03/23/2015 CONNOR DELVALLE, JOSE Sosa Ot 250.80 03/23/2015 CONNOR DELVALLE, JOSE Sosa Ot 707.14 03/27/2015 CONNOR DELVALLE, JOSE Sosa Ot E11.21 TYPE 2 DIABETES MELLITUS WITH DIABETIC N 03/27/2015 CONNOR DELVALLE, JOSE Sosa Ot E11.22 TYPE 2 DIABETES MELLITUS W DIABETIC OPERATIONS/DISPATCH 03/27/2015 CONNOR DELVALLE, JOSE Sosa Ot E11.65 TYPE 2 DIABETES MELLITUS WITH HYPERGLYCE 03/27/2015 CONNOR DELVALLE, JOSE Sosa Ot E86.0 DEHYDRATION 03/27/2015 CONNOR DELVALLE, JOSE Sosa Ot E87.5 HYPERKALEMIA 03/27/2015 CONNOR DELVALLE, JOSE Sosa Ot I12.9 HYPERTENSIVE CHRONIC KIDNEY DISEASE W ST 03/27/2015 CONNOR DELVALLE, JOSE Sosa Ot I51.7 CARDIOMEGALY 03/27/2015 CONNOR DELVALLE, JOSE Sosa Ot N17.9 ACUTE KIDNEY FAILURE, UNSPECIFIED 03/27/2015 CONNOR DELVALLE, JOSE Sosa Ot N18.9 CHRONIC KIDNEY DISEASE, UNSPECIFIED 03/27/2015 CONNOR DELVALLE, JOSE Sosa Ot N39.0 URINARY TRACT INFECTION, SITE NOT SPECIF 03/27/2015 CONNOR DELVALLE, JOSE Sosa Ot R41.0 DISORIENTATION, UNSPECIFIED 03/27/2015 CONNOR DELVALLE, JOSE Sosa Ot R45.1 RESTLESSNESS AND AGITATION 03/27/2015 CONNOR DELVALLE, JOSE Sosa Ot R53.81 OTHER MALAISE 03/27/2015 CONNOR DELVALLE, JOSE Sosa Ot Z66 DO NOT RESUSCITATE 05/11/2015 TAYLOR DELVALLE, ARPITA A Ot N45.1 05/11/2015 TAYLOR DELVALLE, ARPITA A Ot N45.1 06/01/2015 TAYLOR DELVALLE, ARPITA A Ot N45.1 06/04/2015 CONNOR DELVALLE, JOSE Sosa Ot 250.80 06/04/2015 CONNOR DELVALLE, JOSE Sosa Ot 707.14 06/04/2015 TAYLOR DELVALLE, ARPITA A Ot N45.1 06/04/2015 TAYLOR DELVALLE, ARPITA A Ot N45.2 06/22/2015 TAYLOR DELVALLE, ARPITA A Ot N45.1 06/24/2015 TAYLOR DELVALLE, ARPITA A Ot N45.2 07/01/2015 TAYLOR DELVALLE, ARPITA A Ot N45.2 08/13/2015 TAYLOR DELVALLE, ARPITA Moss Ot N45.3 EPIDIDYMO-ORCHITIS 09/12/2015 TAYLOR DELVALLE, ARPITA A Ot N45.3 EPIDIDYMO-ORCHITIS 09/12/2015 TAYLOR DELVALLE, ARPITA Moss Ot N45.3 EPIDIDYMO-ORCHITIS 09/19/2015 EDWARD EDIN Lou Ot F03.90 UNSPECIFIED DEMENTIA WITHOUT BEHAVIORAL 09/19/2015 PATTERSON DO EDIN Carmine Ot G89.29 OTHER CHRONIC PAIN 09/19/2015 EDWARD EDIN Carmine Ot M48.02 SPINAL STENOSIS, CERVICAL REGION 09/19/2015 PATTERSON DO EDIN K Ot M54.5 LOW BACK PAIN 09/19/2015 EDWARD DO EDIN K Ot N13.30 UNSPECIFIED HYDRONEPHROSIS 09/19/2015 PATTERSON DO EDIN K Ot R11.2 NAUSEA WITH VOMITING, UNSPECIFIED 09/19/2015 PATTERSON DO EDIN Lou Ot S00.03XA CONTUSION OF SCALP, INITIAL ENCOUNTER 09/19/2015 EDWARD DO EDIN Lou Ot W01.198A FALL SAME LEV FROM SLIP/TRIP W STRIKE AG 09/19/2015 EDWARD RODRIGUEZ EDIN Carmine Ot Y92.[address] IN [facility] PLACE 09/19/2015 EDWARD RODRIGUEZ EDIN Carmine Ot Y99.8 OTHER EXTERNAL CAUSE STATUS 09/24/2015 EDWARD DO EDIN Carmine Ot F03.90 UNSPECIFIED DEMENTIA WITHOUT BEHAVIORAL 09/24/2015 EDWARD DO EDIN Carmine Ot G89.29 OTHER CHRONIC PAIN 09/24/2015 EDWARD DO EDIN Carmine Ot M48.02 SPINAL STENOSIS, CERVICAL REGION 09/24/2015 EDWARD DO EDIN Lou Ot M54.5 LOW BACK PAIN 09/24/2015 EDWARD DO EDIN K Ot N13.30 UNSPECIFIED HYDRONEPHROSIS 09/24/2015 EDWARD DO EDIN K Ot R11.2 NAUSEA WITH VOMITING, UNSPECIFIED 09/24/2015 EDWARD EDIN K Ot S00.03XA CONTUSION OF SCALP, INITIAL ENCOUNTER 09/24/2015 EDWARD EDIN K Ot W01.198A FALL SAME LEV FROM SLIP/TRIP W STRIKE AG 09/24/2015 EDIN LEON DO Ot Y92.[address] IN [facility] PL[facility] 09/24/2015 EDIN LEON DO Ot Y99.8 OTHER EXTERNAL CAUSE STATUS 04/14/2016 CONNOR DELVALLE, JOSE Sosa Ot 250.80 DIAB W OTH SPEC MANIFEST, TYPE II OR UNS 04/14/2016 JOSE RYAN MD Ot 707.14 ULCER OF HEEL AND MIDFOOT 04/14/2016 ARPITA VAZQUEZ MD Ot N45.1 EPIDIDYMITIS 04/14/2016 TAYLOR DELVALLE, ARPITA Moss Ot N45.2 ORCHITIS 04/14/2016 ARPITA VAZQUEZ MD Ot N45.3 EPIDIDYMO-ORCHITIS 04/14/2016 JOSE RYAN MD Ot 250.80 DIAB W OTH SPEC MANIFEST, TYPE II OR UNS 04/14/2016 JOSE RYAN MD Ot 707.14 ULCER OF HEEL AND MIDFOOT 04/14/2016 ARPITA VAZQUEZ MD Ot N45.1 EPIDIDYMITIS 04/14/2016 TAYLOR DELVALLE, ARPITA Moss Ot N45.2 ORCHITIS 04/14/2016 ARPITA VAZQUEZ MD Ot N45.3 EPIDIDYMO-ORCHITIS 04/18/2016 BRENT FINCH MD Ot I73.9 PERIPHERAL VASCULAR DISEASE, UNSPECIFIED 04/18/2016 BRENT FINCH MD Ot L97.522 NON-PRS CHRONIC ULCER OTH PRT LEFT FOOT 04/18/2016 BRENT FINCH MD Ot I73.9 PERIPHERAL VASCULAR DISEASE, UNSPECIFIED 04/18/2016 BRENT FINCH MD Ot L97.522 NON-PRS CHRONIC ULCER OTH PRT LEFT FOOT 05/10/2016 BRENT FINCH MD Ot I73.9 PERIPHERAL VASCULAR DISEASE, UNSPECIFIED 05/10/2016 BRENT FINCH MD Ot L97.522 NON-PRS CHRONIC ULCER OTH PRT LEFT FOOT 05/12/2016 BRENT FINCH MD Ot I73.9 PERIPHERAL VASCULAR DISEASE, UNSPECIFIED 05/12/2016 BRENT FINCH MD Ot L97.522 NON-PRS CHRONIC ULCER OTH PRT LEFT FOOT Procedures Results Test Result Range Automated blood complete blood count (hemogram) panel - 06/09/16 11:35 Blood leukocytes automated count (number/volume) 6.5 10*3/ uL 4.3-11.0 Blood erythrocytes automated count (number/volume) 2.96 10*6 /uL 4.35-5.85 Venous blood hemoglobin measurement (mass/volume) 10.1 g/dL 13.3-17.7 Blood hematocrit (volume fraction) 29 % 40-54 Automated erythrocyte mean corpuscular volume 98 [foz_us] 80-99 Automated erythrocyte mean corpuscular hemoglobin (mass per erythrocyte) 34 pg 25-34 Automated erythrocyte mean corpuscular hemoglobin concentration measurement ( mass/volume) 35 g/dL 32-36 Automated erythrocyte distribution width ratio 13.2 % 10.0-14.5 Automated blood platelet count (count/volume) 248 10*3/uL 130-400 Automated blood platelet mean volume measurement 10.0 [foz_ us] 7.4-10.4 Comprehensive metabolic panel - 06/09/16 11:35 Serum or plasma sodium measurement (moles/volume) 132 mmol/ L 135-145 Serum or plasma potassium measurement (moles/volume) 4.5 mmol/L 3.6-5.0 Serum or plasma chloride measurement (moles/volume) 98 mmol/ L 98-107 Carbon dioxide 21 mmol/L 21-32 Serum or plasma anion gap determination (moles/volume) 13 mmol/L 5-14 Serum or plasma urea nitrogen measurement (mass/volume) 34 mg/dL 7-18 Serum or plasma creatinine measurement (mass/volume) 1.99 mg /dL 0.60-1.30 Serum or plasma urea nitrogen/creatinine mass ratio 17 NRG Serum or plasma creatinine measurement with calculation of estimated glomerular filtration rate 32 NRG Serum or plasma glucose measurement (mass/volume) 230 mg/dL 70-105 Serum or plasma calcium measurement (mass/volume) 9.0 mg/dL 8.5-10.1 Serum or plasma total bilirubin measurement (mass/volume) 0.4 mg/dL 0.1-1.0 Serum or plasma alkaline phosphatase measurement (enzymatic activity/volume) 84 U/L 40-136 Serum or plasma aspartate aminotransferase measurement (enzymatic activity/ volume) 16 U/L 5-34 Serum or plasma alanine aminotransferase measurement (enzymatic activity/volume ) 13 U/L 0-55 Serum or plasma protein measurement (mass/volume) 6.8 g/dL 6.4-8.2 Serum or plasma albumin measurement (mass/volume) 3.3 g/dL 3.2-4.5 Erythrocyte sedimentation rate by westergren method - 06/09/16 11:35 Erythrocyte sedimentation rate by westergren method 74 mm 0-30 Capillary blood glucose measurement by glucometer (mass/volume) - 06/09/16 16: 34 Capillary blood glucose measurement by glucometer (mass/volume) 227 mg/dL 70-110 Capillary blood glucose measurement by glucometer (mass/volume) - 06/09/16 20: 41 Capillary blood glucose measurement by glucometer (mass/volume) 170 mg/dL 70-110 Complete blood count (CBC) with automated white blood cell (WBC) differential - 06/10/16 04:07 Blood leukocytes automated count (number/volume) 6.4 10*3/ uL 4.3-11.0 Blood erythrocytes automated count (number/volume) 2.83 10*6 /uL 4.35-5.85 Venous blood hemoglobin measurement (mass/volume) 9.4 g/dL 13.3-17.7 Blood hematocrit (volume fraction) 28 % 40-54 Automated erythrocyte mean corpuscular volume 99 [foz_us] 80-99 Automated erythrocyte mean corpuscular hemoglobin (mass per erythrocyte) 33 pg 25-34 Automated erythrocyte mean corpuscular hemoglobin concentration measurement ( mass/volume) 34 g/dL 32-36 Automated erythrocyte distribution width ratio 13.3 % 10.0-14.5 Automated blood platelet count (count/volume) 235 10*3/uL 130-400 Automated blood platelet mean volume measurement 9.9 [foz_us ] 7.4-10.4 Automated blood neutrophils/100 leukocytes 50 % 42-75 Automated blood lymphocytes/100 leukocytes 31 % 12-44 Blood monocytes/100 leukocytes 14 % 0-12 Automated blood eosinophils/100 leukocytes 5 % 0-10 Automated blood basophils/100 leukocytes 0 % 0-10 Blood neutrophils automated count (number/volume) 3.2 10*3 1.8-7.8 Blood lymphocytes automated count (number/volume) 2.0 10*3 1.0-4.0 Blood monocytes automated count (number/volume) 0.9 10*3 0.0-1.0 Automated eosinophil count 0.3 10*3/uL 0.0-0.3 Automated blood basophil count (count/volume) 0.0 10*3/uL 0.0-0.1 Whole blood basic metabolic panel - 06/10/16 04:07 Serum or plasma sodium measurement (moles/volume) 135 mmol/ L 135-145 Serum or plasma potassium measurement (moles/volume) 5.2 mmol/L 3.6-5.0 Serum or plasma chloride measurement (moles/volume) 105 mmol /L 98-107 Carbon dioxide 19 mmol/L 21-32 Serum or plasma anion gap determination (moles/volume) 11 mmol/L 5-14 Serum or plasma urea nitrogen measurement (mass/volume) 34 mg/dL 7-18 Serum or plasma creatinine measurement (mass/volume) 1.88 mg /dL 0.60-1.30 Serum or plasma urea nitrogen/creatinine mass ratio 18 NRG Serum or plasma creatinine measurement with calculation of estimated glomerular filtration rate 34 NRG Serum or plasma glucose measurement (mass/volume) 149 mg/dL 70-105 Serum or plasma calcium measurement (mass/volume) 8.3 mg/dL 8.5-10.1 Magnesium - 06/10/16 04:07 Magnesium 1.7 mg/dL 1.8-2.4 Capillary blood glucose measurement by glucometer (mass/volume) - 06/10/16 17: 15 Capillary blood glucose measurement by glucometer (mass/volume) 105 mg/dL 70-110 Capillary blood glucose measurement by glucometer (mass/volume) - 06/10/16 21: 13 Capillary blood glucose measurement by glucometer (mass/volume) 136 mg/dL 70-110 Automated blood complete blood count (hemogram) panel - 06/11/16 04:05 Blood leukocytes automated count (number/volume) 5.4 10*3/ uL 4.3-11.0 Blood erythrocytes automated count (number/volume) 2.74 10*6 /uL 4.35-5.85 Venous blood hemoglobin measurement (mass/volume) 9.1 g/dL 13.3-17.7 Blood hematocrit (volume fraction) 28 % 40-54 Automated erythrocyte mean corpuscular volume 101 [foz_us] 80-99 Automated erythrocyte mean corpuscular hemoglobin (mass per erythrocyte) 33 pg 25-34 Automated erythrocyte mean corpuscular hemoglobin concentration measurement ( mass/volume) 33 g/dL 32-36 Automated erythrocyte distribution width ratio 13.5 % 10.0-14.5 Automated blood platelet count (count/volume) 211 10*3/uL 130-400 Automated blood platelet mean volume measurement 10.2 [foz_ us] 7.4-10.4 Encounters ACCT No. Visit Date/Time Discharge Status Pt. Type Provider Facility Loc./Unit Complaint [id number] 09/19/2015 19:29:00 2015 22:16:00 DIS Emergency EDWARD EDIN RODRIGUEZ [facility] ER FALL [id number] 03/23/2015 13:15:00 2015 15:20:00 DIS Inpatient JOSE RYAN MD [facility] 4TH ACUTE RENAL FAILURE AMS [id number] 03/26/2014 10:09:00 2014 12:30:00 DIS Outpatient BRENT FINCH MD [facility] WOUNDCARE STAGE 3 LEFT HEEL DECUB, DM, [id number] 03/21/2014 10:32:00 2014 23:59:59 CLS Outpatient JOSE RYAN MD [facility] RAD LEFT DIABETIC HEEL ULCER [id number] 09/12/2013 08:30:00 2013 14:10:00 DIS Inpatient [id number] 06/09/2016 11:47:00 Document Registration [id number] 04/14/2016 13:45:00 ACT Outpatient BRENT FINCH MD [facility] RAD PERIPHERAL ARTERIAL DISEASE,LT FOOT ULCER [id number] 08/10/2015 12:59:00 ACT Outpatient ARPITA VAZQUEZ MD [facility] RAD EPIDORCHITIS [id number] 06/04/2015 11:24:00 ACT Outpatient ARPITA VAZQUEZ MD [facility] RAD EPIDIDYMITIS ORCHITIS RIGHT TESTICLE [id number] 05/04/2015 11:42:00 ACT Outpatient ARPTIA VAZQUEZ MD [facility] RAD RIGHT EPIDIMITIS [id number] 08/09/2011 10:00:00 Document Registration
--- NOTE | 2016-06-12 11:16 | Progress Note-Hospitalist ---
Subjective HPI/CC On Admission Mr. Pierce is an 85-year-old white male with long-standing hypertension and type II diabetes mellitus who's had nonhealing the left foot ulcer on the left great toe and left heel. He is being followed by our flight control specialist Dr. Espinal who after today's visit noted progression of erythema with increased drainage is malodorous. He had the appearance of increasing infection now. JESSI studies are suggestive of significant peripheral vascular disease as well around 0.5. The wound is deep enough that osteomyelitis is a concern for all these reasons treatment of cellulitis versus osteomyelitis and to facilitate angiography with consideration for for revascularization patient is being admitted. Patient does have a history of peripheral neuropathy and has been [facility] resident for several years. 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 Previous to [facility] placement he had had a long history of uncontrolled diabetes due to noncompliance he's had a previous history of depression but is been under control essentially remission since he's been under [facility] care. He's had several bouts of presumed diverticulitis treated with antibiotic therapy and has had several urinary tract infection. He has no past history of amputation and had no previous history of foot ulceration. Date Seen 06/12/16 Subjective/Events-last exam patient awake and alert voicing no complaints. He denies foot pain slept well. He denies abdominal discomfort reports his appetite is been normal. Objective Exam Vital Signs Vital Sign - Last 12Hours 06/09/16 06/09/16 11:30 12:00 Temp 96.6 Pulse 79 Resp 22 B/P (MAP) 137/68 Pulse Ox 95 O2 Delivery Room Air Capillary Refill : Less Than 3 Seconds General Appearance: No Apparent Distress Respiratory: Lungs Clear, Normal Breath Sounds, No Accessory Muscle Use, No Respiratory Distress Cardiovascular: Regular Rate, Rhythm, No Edema Extremity: No Pedal Edema, Other (feet are warm with normal color.) Results/Procedures Lab Laboratory Tests 06/12/16 06:40 Assessment/Plan Assessment and Plan Assess & Plan/Chief Complaint 1. Left diabetic foot infection can't rule out the possibility of osteomyelitis involving the left great toe aggravated by peripheral vascular disease status post successful left posterior tibial angioplasty. cultures are growing Proteus mirabilis sensitive to Zosyn. MRSA also growing no other sensitivities available yet. 2. Stage IV chronic renal disease continue IV hydration and monitoring for contrast nephropathy. creatinine level slightly lower at 1.88 which is encouraging. We will decrease IV fluids slightly to 100 mL per hour. 3. Type II diabetes mellitus JOSE RYAN MD Jun 12, 2016 11:16
[2016-06-12] MEDS: inSUlin ASPART (NovoLOG) 1 UNIT/0.01 ML (CHARGE PER UNIT) SQ SCH ×2 (12:10→17:36)
--- NOTE | 2016-06-12 16:28 | Progress Note-Cardiology ---
Cardiology SOAP Progress Note Subjective: He does not report cp or palp or syncope or leg discomfort Objective: I&O/Vital Signs Vital Sign - Last 12Hours 06/12/16 06/12/16 06/12/16 06/12/16 07:00 07:41 12:00 13:00 Temp 97.0 96.0 Pulse 69 69 70 69 Resp 18 18 B/P (MAP) 152/70 134/55 Pulse Ox 96 96 O2 Delivery Room Air Room Air Intake and Output 06/12/16 00:00 Intake Total 2775 ml Balance 2775 ml Weight (Pounds): 217 Weight (Ounces): 8.0 Weight (Calculated Kilograms): 98.391573 Groin site without hematoma: Yes Bruising: mild bruising Constitutional: appears stated age, No apparent distress, well-developed, well- nourished Respiratory: No accessory muscle use, No respiratory distress, lungs clear to auscultation Cardiovascular: regular rate-rhythm, No JVD, S1 and S2 Gastrointestional: No tender, soft, round, No spleenomegaly Extremities: No clubbing, No cyanosis, No significant edema, wound (left foot; dressing D&I; dressing not removed - foul odor is noted though) Neurologic/Psychiatric: alert, oriented x 3, power is 5/5 both on sides Skin: No rash, No ulcerations Results/Procedures: Labs Laboratory Tests 06/11/16 21:32: Glucometer 106 06/12/16 06:24: Glucometer 95 06/12/16 06:40: Sodium Level 141, Potassium Level 4.4, Chloride Level 114H, Carbon Dioxide Level 19L, Anion Gap 8, Blood Urea Nitrogen 24H, Creatinine 1.92H, Estimat Glomerular Filtration Rate 34, BUN/Creatinine Ratio 13, Glucose Level 89, Calcium Level 7.8L 06/12/16 11:08: Glucometer 112H 06/12/16 16:14: Microbiology 06/10/16 Anaerobic Culture - Preliminary, Resulted Laboratory Tests 06/11/16 04:05 06/12/16 06:40 A/P: Assessment: Non-healing left heal ulcer, likely due to DM and PAD - being managed by Dr. Arndt PAD, primarily L-sided, based on noninvasive w/u of Mar and May 2016: angiography on 06/10/16 showed that the inflow vessels and sup fem and the popliteal on the L were without any significant disease; there was total proximal occlusion of the L posterior tibial with distal collateralization form patent L peroneal and L ant tibial arteries; he underwent successful balloon angioplasty to the L posterior tibial with presybeterian of antegrade blood flow in that vessel down to the level of the ankle Mild dementia Diabetes II - insulin-requiring - managed by his PCP CKD - stage IV, likely diabetic nephropathy Echo of Mar [address] Mejia: Biventricular systolic function is hyperkinetic with estimated left ejection fraction of 75%. Mild concentric left ventricular hypertrophy is present with evidence for diastolic dysfunction on Doppler interrogation of left ventricular inflow. Cardiac chamber dimensions are all at the upper limits of normal in size. The aortic root was mildly dilated 3.9 cm in diameter. The proximal portion of the ascending aorta did not appear to be dilated and there was not evidence for significant aortic insufficiency. Mild tricuspid insufficiency is present with an estimated peak systolic pressure of 30 mmHg, at the upper limits normal Plan: Continue to monitor for contrast nephropathy on top of his known CKD stage 4 Continue iv fluids at a lower rate KELSEY MONTANA MD FACP FAC CCDS Jun 12, 2016 16:28
[2016-06-12] MEDS: VANCOMYCIN 1500 MG/NS 500 ML IVPB IV SCH ×2 (16:57)
[2016-06-12] MEDS: ENOXAPARIN 40 MG/0.4 ML (LOVENOX) SYR SC SCH (17:35)
--- NOTE | 2016-06-12 19:35 | Wound Care Progress Note ---
Subjective Subjective Subjective/Events-last exam The patient is an 85-year-old male with cellulitis of the left foot related to a necrotic ulcer on the left heel, caused by a combination of arterial insufficiency, and diabetes mellitus. The cellulitis is much improved on IV vancomycin and Zosyn, with preliminary culture results demonstrating MRSA. The wound bed demonstrates pink tissue were previously it was all cross and necrotic. There remain some areas of necrotic tissue. The patient denies any significant pain in his left foot. PMFSH: No interval change. Review of Systems General: No Chills Pulmonary: No Dyspnea Cardiovascular: No: Chest Pain Genitourinary: Incontinence Objective Exam Last Set of Vital Signs Vital Signs Date Time Temp Pulse Resp B/P (MAP) Pulse Ox O2 Delivery O2 Flow Rate FiO2 06/12/16 17:30 98.0 71 18 156/67 97 Room Air Capillary Refill : Less Than 3 Seconds I&O Intake and Output 06/12/16 00:00 Intake Total 3825 ml Balance 3825 ml Intake Oral 1060 ml IV Total 2765 ml # Voids 6 General: Alert, Cooperative, No Acute Distress HEENT: Atraumatic Neck: Supple Lungs: Normal Air Movement Abdomen: Soft Extremities: No Edema Skin: Other (left heel: 6.4 x 4.8 x 0.5 cm, base is 25% granulation, 50% slough , and 25% eschar. -- Left great toe: 1.9 x 1.3 x 0.1 cm, 100% eschar. No drainage.) Results Lab Laboratory Tests 06/11/16 21:32: Glucometer 106 06/12/16 06:24: Glucometer 95 06/12/16 06:40: Sodium Level 141, Potassium Level 4.4, Chloride Level 114H, Carbon Dioxide Level 19L, Anion Gap 8, Blood Urea Nitrogen 24H, Creatinine 1.92H, Estimat Glomerular Filtration Rate 34, BUN/Creatinine Ratio 13, Glucose Level 89, Calcium Level 7.8L 06/12/16 11:08: Glucometer 112H 06/12/16 16:14: Vancomycin Level Trough 22.2H 06/12/16 17:27: Glucometer 74 Microbiology 06/10/16 Anaerobic Culture - Preliminary, Resulted Assessment/Plan Assessment/Plan Assessment/Plan 1. Left heel ulcer, atherosclerotic peripheral arterial disease, full-thickness with exposed support structures. 2. Diabetes mellitus with left foot ulcer, grade 3. 3. Chronic renal failure, stage IV. 4. Mild dementia. 5. Left great toe ulcer, stable. Plan: Continue present regimen of IV antibiotics and Betadine topical dressings. Observe for improvement in wound status. BRENT FINCH MD Jun 12, 2016 19:35
[2016-06-12] MEDS: DONEPEZIL 10 MG (ARICEPT) TAB PO SCH (21:08)
[2016-06-12] MEDS: VANCOMYCIN INJECTION 1,250 MG in NS (IVPB) 250 ML IV SCH (21:08)
[2016-06-13] VITALS: BP 133/66
[2016-06-13] MEDS: PIPERACILLIN/TAZOBACTAM 4.5 GM/NS 100 ML IVPB IV SCH ×2 (02:29)
[2016-06-13 04:15] VITALS: BP 148/74
[2016-06-13] MEDS: NS IV 1000 ML 1,000 ML IV SCH (05:53)
[2016-06-13 08:35] VITALS: BP 152/76
--- NOTE | 2016-06-13 08:52 | Progress Note-Hospitalist ---
Subjective HPI/CC On Admission Mr. Pierce is an 85-year-old white male with long-standing hypertension and type II diabetes mellitus who's had nonhealing the left foot ulcer on the left great toe and left heel. He is being followed by our rating specialist Dr. Espinal who after today's visit noted progression of erythema with increased drainage is malodorous. He had the appearance of increasing infection now. JESSI studies are suggestive of significant peripheral vascular disease as well around 0.5. The wound is deep enough that osteomyelitis is a concern for all these reasons treatment of cellulitis versus osteomyelitis and to facilitate angiography with consideration for for revascularization patient is being admitted. Patient does have a history of peripheral neuropathy and has been jail resident for several years. 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 Previous to jail placement he had had a long history of uncontrolled diabetes due to noncompliance he's had a previous history of depression but is been under control essentially remission since he's been under jail care. He's had several bouts of presumed diverticulitis treated with antibiotic therapy and has had several urinary tract infection. He has no past history of amputation and had no previous history of foot ulceration. Date Seen 06/13/16 Subjective/Events-last exam patient reports he feels well voicing no complaints this morning. He denies foot pain BNP is not elevated indicating no increased left ventricular end diastolic dilatation. intake has been fair. Objective Exam Vital Signs Vital Sign - Last 12Hours 06/09/16 06/09/16 11:30 12:00 Temp 96.6 Pulse 79 Resp 22 B/P (MAP) 137/68 Pulse Ox 95 O2 Delivery Room Air Capillary Refill : Less Than 3 Seconds General Appearance: No Apparent Distress Extremity: Other (left foot is warm) Assessment/Plan Assessment and Plan Assess & Plan/Chief Complaint 1. Left diabetic foot infection can't rule out the possibility of osteomyelitis involving the left great toe aggravated by peripheral vascular disease status post successful left posterior tibial angioplasty. cultures are growing Proteus mirabilis sensitive to Zosyn. MRSA also growing we'll continue vancomycin and switched to Rocephin so the patient is on 2 antibiotics with daily dosing schedule. We will need to discuss the potential for osteomyelitis issues of the calcaneus and whether or not we can set up antibiotic therapy at [facility] with Dr. Espinal. 2. Stage IV chronic renal disease continue IV hydration and monitoring for contrast nephropathy. creatinine level slightly lower at 1.88 which is encouraging. We will decrease IV fluids slightly to 100 mL per hour. 3. Type II diabetes mellitus JOSE RYAN MD Jun 13, 2016 08:52
[2016-06-13] MEDS: CLOPIDOGREL 75 MG (PLAVIX) TABLET PO SCH (09:12)
[2016-06-13] MEDS: MULTIVIT W/MINERALS TAB (THERAGRAN M) PO SCH (09:12)
[2016-06-13] MEDS: ASPIRIN E.C. 81 MG (ECOTRIN) TAB PO SCH (09:13)
[2016-06-13] MEDS: inSUlin ASPART (NovoLOG) 1 UNIT/0.01 ML (CHARGE PER UNIT) SC SCH (09:14)
[2016-06-13] MEDS: inSUlin DETERMIR 1 UNIT/0.01 ML (LEVEMIR) CHARGE PER UNIT SQ SCH (09:16)
--- NOTE | 2016-06-13 09:20 | Progress Note-Cardiology ---
Cardiology SOAP Progress Note Subjective: Sitting up in a recliner at the bedside. No c/o CP, SOB or palpitations. No c/ o left foot discomfort Objective: I&O/Vital Signs Vital Sign - Last 12Hours 06/13/16 06/13/16 06/13/16 06/13/16 00:00 04:15 07:00 08:35 Temp 97.6 98.6 97.5 Pulse 70 79 64 70 Resp 18 20 16 B/P (MAP) 133/66 148/74 152/76 Pulse Ox 98 97 96 O2 Delivery Room Air Room Air Room Air Intake and Output 06/13/16 00:00 Intake Total 2170 ml Balance 2170 ml Weight (Pounds): 217 Weight (Ounces): 8.0 Weight (Calculated Kilograms): 98.597754 Groin site without hematoma: Yes Bruising: mild bruising Constitutional: appears stated age, No apparent distress, well-developed, well- nourished Respiratory: No accessory muscle use, No respiratory distress, lungs clear to auscultation Cardiovascular: regular rate-rhythm, No JVD, S1 and S2 Gastrointestional: No tender, soft, round, No spleenomegaly Extremities: No clubbing, No cyanosis, significant edema (mild bilat LE edema) , wound (left foot; dressing D&I; dressing not removed - foul odor is noted though) Neurologic/Psychiatric: alert, oriented x 3, grossly intact Skin: No rash, No ulcerations Results/Procedures: Labs Laboratory Tests 06/12/16 11:08: Glucometer 112H 06/12/16 16:14: Vancomycin Level Trough 22.2H 06/12/16 17:27: Glucometer 74 06/12/16 20:50: Glucometer 114H 06/13/16 06:34: Glucometer 111H Microbiology 06/10/16 Anaerobic Culture - Preliminary, Resulted A/P: Assessment: Non-healing left heal ulcer, likely due to DM and PAD - being managed by Dr. Arndt PAD, primarily L-sided, based on noninvasive w/u of Mar and May 2016: angiography on 06/10/16 showed that the inflow vessels and sup fem and the popliteal on the L were without any significant disease; there was total proximal occlusion of the L posterior tibial with distal collateralization form patent L peroneal and L ant tibial arteries; he underwent successful balloon angioplasty to the L posterior tibial with tenriism of antegrade blood flow in that vessel down to the level of the ankle Mild dementia Diabetes II - insulin-requiring - managed by his PCP CKD - stage IV, likely diabetic nephropathy Echo of Mar [address] Mejia: Biventricular systolic function is hyperkinetic with estimated left ejection fraction of 75%. Mild concentric left ventricular hypertrophy is present with evidence for diastolic dysfunction on Doppler interrogation of left ventricular inflow. Cardiac chamber dimensions are all at the upper limits of normal in size. The aortic root was mildly dilated 3.9 cm in diameter. The proximal portion of the ascending aorta did not appear to be dilated and there was not evidence for significant aortic insufficiency. Mild tricuspid insufficiency is present with an estimated peak systolic pressure of 30 mmHg, at the upper limits normal Plan: Continue to monitor for contrast nephropathy on top of his known CKD stage 4 IVF stopped per medical services Wound care per Dr. Arndt and Dr. Mejia Physician Assessment Physician Assessment Lungs: clear Cor: reg A&R * As documented in our note above [facility] Jun 13, 2016 09:20 KELSEY MONTANA MD FACP [facility] Jun 13, 2016 09:29
[2016-06-13] MEDS: inSUlin ASPART (NovoLOG) 1 UNIT/0.01 ML (CHARGE PER UNIT) SQ SCH ×2 (11:59→18:08)
[2016-06-13 12:38] VITALS: BP 137/64
[2016-06-13 16:02] VITALS: BP 118/60
[2016-06-13] MEDS: ENOXAPARIN 40 MG/0.4 ML (LOVENOX) SYR SC SCH (18:08)
--- NOTE | 2016-06-13 19:31 | Wound Care Progress Note ---
Subjective Subjective Subjective/Events-last exam The patient is an 85-year-old gentleman with improved appearance of his left heel wound. The wound is both atherosclerotic arterial disease and diabetic ulcer. The patient is recommended to undergo a second debridement to further remove necrotic tissue. The procedure is explained and the patient agrees to proceed with the debridement. Past medical and social history: No interval change Review of Systems Pulmonary: No Dyspnea Cardiovascular: No: Chest Pain Objective Exam Last Set of Vital Signs Vital Signs Date Time Temp Pulse Resp B/P (MAP) Pulse Ox O2 Delivery O2 Flow Rate FiO2 06/13/16 16:02 98.9 70 20 118/60 97 Room Air Capillary Refill : Less Than 3 Seconds I&O Intake and Output 06/13/16 00:00 Intake Total 3420 ml Balance 3420 ml Intake Oral 1120 ml IV Total 2300 ml # Voids 7 General: Alert, No Acute Distress Lungs: Normal Air Movement Skin: Other (left heel ulcer, 6.4 x 5.3 x 0.4 cm to percent slough and 5% granulation and 25% eschar. Moderate serosanguineous drainage.) Results Lab Laboratory Tests 06/12/16 20:50: Glucometer 114H 06/13/16 06:34: Glucometer 111H 06/13/16 11:05: Glucometer 160H 06/13/16 16:07: Glucometer 79 Microbiology 06/10/16 Anaerobic Culture - Preliminary, Resulted Assessment/Plan Assessment/Plan Assessment/Plan 1. Ulcer left heel full-thickness without exposed support structures. 2. Atherosclerotic arterial disease with ulceration of left heel. 3. Diabetes mellitus with grade 3 ulcer of left heel. Plan: We'll arrange for local anesthetic and plan debridement of the wound tomorrow. BRENT FINCH MD Jun 13, 2016 19:31
[2016-06-13 19:46] VITALS: BP 139/63
[2016-06-13] MEDS: VANCOMYCIN INJECTION 1,250 MG in NS (IVPB) 250 ML IV SCH (20:45)
[2016-06-13] MEDS: DONEPEZIL 10 MG (ARICEPT) TAB PO SCH (20:45)
[2016-06-14 00:15] VITALS: BP 146/65
[2016-06-14 04:41] VITALS: BP 138/65
[2016-06-14 05:18] LABS: CREATININE SERUM 1.66 MG/DL (0.60-1.30); POTASSIUM 4.4 MMOL/L (3.6-5.0)
[2016-06-14] MEDS: inSUlin ASPART (NovoLOG) 1 UNIT/0.01 ML (CHARGE PER UNIT) SC SCH (07:42)
[2016-06-14 08:00] VITALS: BP 153/70
[2016-06-14] MEDS: CLOPIDOGREL 75 MG (PLAVIX) TABLET PO SCH (09:00)
[2016-06-14] MEDS: MULTIVIT W/MINERALS TAB (THERAGRAN M) PO SCH (09:00)
[2016-06-14] MEDS: ASPIRIN E.C. 81 MG (ECOTRIN) TAB PO SCH (09:00)
[2016-06-14] MEDS: inSUlin DETERMIR 1 UNIT/0.01 ML (LEVEMIR) CHARGE PER UNIT SQ SCH (09:00)
--- NOTE | 2016-06-14 09:00 | Progress Note-Cardiology ---
Cardiology SOAP Progress Note Subjective: In bed. No new c/o. Objective: I&O/Vital Signs Vital Sign - Last 12Hours 06/14/16 06/14/16 06/14/16 06/14/16 04:41 07:00 08:00 09:00 Temp 98.1 97.2 Pulse 80 74 54 Resp 16 16 B/P (MAP) 138/65 153/70 Pulse Ox 96 95 95 O2 Delivery Room Air Room Air Room Air 06/14/16 12:00 Temp 98.8 Pulse 75 Resp 16 B/P (MAP) 154/72 Pulse Ox 97 Intake and Output 06/14/16 00:00 Intake Total 1630 ml Balance 1630 ml Weight (Pounds): 217 Weight (Ounces): 8.0 Weight (Calculated Kilograms): 98.930871 Groin site without hematoma: Yes Bruising: mild bruising Constitutional: appears stated age, No apparent distress, well-developed, well- nourished Respiratory: No accessory muscle use, No respiratory distress, lungs clear to auscultation Cardiovascular: regular rate-rhythm, No JVD, S1 and S2 Gastrointestional: No tender, soft, round, No spleenomegaly Extremities: No clubbing, No cyanosis, significant edema (mild bilat LE edema) , wound (left foot; dressing D&I; dressing not removed - foul odor is noted though) Neurologic/Psychiatric: alert, oriented x 3, grossly intact Skin: No rash, No ulcerations Results/Procedures: Labs Laboratory Tests 06/13/16 16:07: Glucometer 79 06/13/16 20:45: Glucometer 142H 06/14/16 04:30: Sodium Level 140, Potassium Level 4.4, Chloride Level 112H, Carbon Dioxide Level 20L, Anion Gap 8, Blood Urea Nitrogen 20H, Creatinine 1.66H, Estimat Glomerular Filtration Rate 40, BUN/Creatinine Ratio 12, Glucose Level 103, Calcium Level 8.0L 06/14/16 05:22: Glucometer 110 06/14/16 11:10: Glucometer 128H Microbiology 06/10/16 Anaerobic Culture - Final, Complete No anaerobes isolated A/P: Assessment: Non-healing left heal ulcer, likely due to DM and PAD - being managed by Dr. Arndt PAD, primarily L-sided, based on noninvasive w/u of Mar and May 2016: angiography on 06/10/16 showed that the inflow vessels and sup fem and the popliteal on the L were without any significant disease; there was total proximal occlusion of the L posterior tibial with distal collateralization form patent L peroneal and L ant tibial arteries; he underwent successful balloon angioplasty to the L posterior tibial with buddhism of antegrade blood flow in that vessel down to the level of the ankle Mild dementia Diabetes II - insulin-requiring - managed by his PCP CKD - stage IV, likely diabetic nephropathy Echo of Mar [address] Mejia: Biventricular systolic function is hyperkinetic with estimated left ejection fraction of 75%. Mild concentric left ventricular hypertrophy is present with evidence for diastolic dysfunction on Doppler interrogation of left ventricular inflow. Cardiac chamber dimensions are all at the upper limits of normal in size. The aortic root was mildly dilated 3.9 cm in diameter. The proximal portion of the ascending aorta did not appear to be dilated and there was not evidence for significant aortic insufficiency. Mild tricuspid insufficiency is present with an estimated peak systolic pressure of 30 mmHg, at the upper limits normal Plan: Continue to monitor for contrast nephropathy on top of his known CKD stage [address] Arndt and Dr. Mejia Physician Assessment Physician Assessment Lungs: good bilateral air entry Cor: reg A&R * As documented in our note above [facility]STERS Jun 14, 2016 09:00 KELSEY MONTANA MD FACP [facility] Jun 14, 2016 13:35
[2016-06-14] MEDS: inSUlin ASPART (NovoLOG) 1 UNIT/0.01 ML (CHARGE PER UNIT) SQ SCH ×2 (11:16→16:09)
[2016-06-14 12:00] VITALS: BP 154/72
[2016-06-14] MEDS ORDERED: LIDOCAINE TOPICAL 4% 50 ML BTL TP SCH (14:15)
[2016-06-14] MEDS: ENOXAPARIN 40 MG/0.4 ML (LOVENOX) SYR SC SCH (16:09)
[2016-06-14 16:45] VITALS: BP 144/63
--- NOTE | 2016-06-14 20:30 | Progress Note-Hospitalist ---
Subjective HPI/CC On Admission Mr. Pierce is an 85-year-old white male with long-standing hypertension and type II diabetes mellitus who's had nonhealing the left foot ulcer on the left great toe and left heel. He is being followed by our disability specialist Dr. Espinal who after today's visit noted progression of erythema with increased drainage is malodorous. He had the appearance of increasing infection now. JESSI studies are suggestive of significant peripheral vascular disease as well around 0.5. The wound is deep enough that osteomyelitis is a concern for all these reasons treatment of cellulitis versus osteomyelitis and to facilitate angiography with consideration for for revascularization patient is being admitted. Patient does have a history of peripheral neuropathy and has been care home resident for several years. 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 Previous to care home placement he had had a long history of uncontrolled diabetes due to noncompliance he's had a previous history of depression but is been under control essentially remission since he's been under care home care. He's had several bouts of presumed diverticulitis treated with antibiotic therapy and has had several urinary tract infection. He has no past history of amputation and had no previous history of foot ulceration. Date Seen 06/14/16 Objective Exam Vital Signs Vital Sign - Last 12Hours 06/09/16 06/09/16 11:30 12:00 Temp 96.6 Pulse 79 Resp 22 B/P (MAP) 137/68 Pulse Ox 95 O2 Delivery Room Air Capillary Refill : Less Than 3 Seconds General Appearance: No Apparent Distress, Chronically ill Cardiovascular: Regular Rate, Rhythm, No Edema, No Gallop, No JVD Extremity: Other (feet warm no pain reported) Results/Procedures Lab Laboratory Tests 06/14/16 04:30 Assessment/Plan Assessment and Plan Assess & Plan/Chief Complaint 1. Left diabetic foot infection can't rule out the possibility of osteomyelitis involving the left great toe aggravated by peripheral vascular disease status post successful left posterior tibial angioplasty. cultures are growing Proteus mirabilis sensitive to Zosyn. MRSA also growing we'll continue vancomycin and switched to Rocephin so the patient is on 2 antibiotics with daily dosing schedule. We will need to discuss the potential for osteomyelitis issues of the calcaneus and whether or not we can set up antibiotic therapy at [facility] with Dr. Espinal. 2. Stage IV chronic renal disease continue IV hydration and monitoring for contrast nephropathy. creatinine level slightly lower at 1.88 which is encouraging. We will decrease IV fluids slightly to 100 mL per hour. 3. Type II diabetes mellitus JOSE RYAN MD Jun 14, 2016 20:30
[2016-06-14 20:51] VITALS: BP 142/65
[2016-06-14] MEDS: VANCOMYCIN INJECTION 1,250 MG in NS (IVPB) 250 ML IV SCH (21:00)
[2016-06-14] MEDS: DONEPEZIL 10 MG (ARICEPT) TAB PO SCH (22:08)
--- NOTE | 2016-06-14 23:48 | Wound Care Progress Note ---
Subjective Subjective Subjective/Events-last exam 85 year old male with infected L heel pressure ulcer, much improved with current treatments. There is remaining necrotic material which will be debrided. The patient has no significant pain in his left heel. Past medical and social history: No interval change. Review of Systems Pulmonary: No Dyspnea Cardiovascular: No: Chest Pain Objective Exam Last Set of Vital Signs Vital Signs Date Time Temp Pulse Resp B/P (MAP) Pulse Ox O2 Delivery O2 Flow Rate FiO2 06/14/16 21:00 Room Air 06/14/16 20:51 98.2 66 20 142/65 96 Capillary Refill : Less Than 3 Seconds I&O Intake and Output 06/14/16 00:00 Intake Total 2130 ml Balance 2130 ml Intake Oral 1680 ml IV Total 450 ml # Voids 9 # Bowel Movements 1 General: Alert, No Acute Distress Lungs: Normal Air Movement Skin: Other (left heel 6.4 x 5.1 x 0.4 cm ulcer, 50% slough 50% eschar.) Results Lab Laboratory Tests 06/14/16 04:30: Sodium Level 140, Potassium Level 4.4, Chloride Level 112H, Carbon Dioxide Level 20L, Anion Gap 8, Blood Urea Nitrogen 20H, Creatinine 1.66H, Estimat Glomerular Filtration Rate 40, BUN/Creatinine Ratio 12, Glucose Level 103, Calcium Level 8.0L 06/14/16 05:22: Glucometer 110 06/14/16 11:10: Glucometer 128H 06/14/16 16:01: Glucometer 123H 06/14/16 20:03: Vancomycin Level Trough 23.7H 06/14/16 21:09: Glucometer 122H Microbiology 06/10/16 Anaerobic Culture - Final, Complete No anaerobes isolated Procedures Procedures Following discussion of the planned procedure alternatives benefits and risks with the patient who expresses understanding, area was anesthetized with 4% lidocaine topical solution, and excisional debridement carried out, using a scalpel and forceps, removing skin slough eschar subcutaneous tissue and fat. The deepest tissue removed was subcutaneous tissue. Minimal bleeding was controlled with pressure. The patient tolerated procedure with minimal pain both during and after the procedure. Following the procedure the wound measured 6.2 x 5.1 x 0.6 cm. The patient tolerated the procedure well. A sterile dressing was applied. Assessment/Plan Assessment/Plan Assessment/Plan 1. Left heel ulcer, full-thickness without exposed support structures. 2. Atherosclerotic arterial peripheral disease with ulcer left heel. 3. Diabetic foot ulcer, left heel, grade 3. Plan: Continue Betadine dressings. With improving wound appearance consider transfer back to long-term care on oral antibiotics. BRENT FINCH MD Jun 14, 2016 23:48
[2016-06-15 00:10] VITALS: BP 163/76
[2016-06-15 04:00] VITALS: BP 157/71
[2016-06-15] MEDS: POVIDONE (BETADINE) 10% SOLN 240 ML BTL TOP SCH (05:06)
[2016-06-15 08:42] VITALS: BP 147/70
[2016-06-15] MEDS: inSUlin ASPART (NovoLOG) 1 UNIT/0.01 ML (CHARGE PER UNIT) SC SCH (08:48)
[2016-06-15] MEDS: inSUlin DETERMIR 1 UNIT/0.01 ML (LEVEMIR) CHARGE PER UNIT SQ SCH (08:49)
[2016-06-15] MEDS: CLOPIDOGREL 75 MG (PLAVIX) TABLET PO SCH (08:49)
[2016-06-15] MEDS: MULTIVIT W/MINERALS TAB (THERAGRAN M) PO SCH (08:49)
[2016-06-15] MEDS: ASPIRIN E.C. 81 MG (ECOTRIN) TAB PO SCH (08:49)
--- NOTE | 2016-06-15 09:26 | Progress Note-Cardiology ---
Cardiology SOAP Progress Note Subjective: In bed. No new c/o Objective: I&O/Vital Signs Vital Sign - Last 12Hours 06/15/16 06/15/16 06/15/16 06/15/16 07:09 08:42 12:00 12:48 Temp 97.4 97.3 Pulse 68 78 79 79 Resp 12 12 12 B/P (MAP) 147/70 161/73 161/73 Pulse Ox 96 96 96 O2 Delivery Room Air Room Air Intake and Output 06/15/16 00:00 Intake Total 1482.5 ml Balance 1482.5 ml Weight (Pounds): 217 Weight (Ounces): 8.0 Weight (Calculated Kilograms): 98.956955 Groin site without hematoma: Yes Bruising: mild bruising Constitutional: appears stated age, No apparent distress, well-developed, well- nourished Respiratory: No accessory muscle use, No respiratory distress, lungs clear to auscultation Cardiovascular: regular rate-rhythm, No JVD, S1 and S2 Gastrointestional: No tender, soft, round, No spleenomegaly Extremities: No clubbing, No cyanosis, No significant edema, wound (left foot; dressing to heel D&I; dressing not removed. Tip of left great toe with dry, endurated, dark, peeling wound.) Neurologic/Psychiatric: alert, oriented x 3, grossly intact Skin: No rash, No ulcerations Results/Procedures: Labs Laboratory Tests 06/14/16 20:03: Vancomycin Level Trough 23.7H 06/14/16 21:09: Glucometer 122H 06/15/16 05:23: Glucometer 111H 06/15/16 08:10: Vancomycin Level Trough 20.0, Sodium Level 139, Potassium Level 4.4, Chloride Level 110H, Carbon Dioxide Level 22, Anion Gap 7, Blood Urea Nitrogen 17, Creatinine 1.45H, Estimat Glomerular Filtration Rate 46, BUN/Creatinine Ratio 12 , Glucose Level 121H, Calcium Level 8.4L 06/15/16 10:57: Glucometer 161H Microbiology 06/10/16 Anaerobic Culture - Final, Complete No anaerobes isolated A/P: Assessment: Non-healing left heal ulcer, likely due to DM and PAD - being managed by Dr. Arndt PAD, primarily L-sided, based on noninvasive w/u of Mar and May 2016: angiography on 06/10/16 showed that the inflow vessels and sup fem and the popliteal on the L were without any significant disease; there was total proximal occlusion of the L posterior tibial with distal collateralization form patent L peroneal and L ant tibial arteries; he underwent successful balloon angioplasty to the L posterior tibial with christian of antegrade blood flow in that vessel down to the level of the ankle Mild dementia Diabetes II - insulin-requiring - managed by his PCP CKD - stage IV, likely diabetic nephropathy Echo of Mar [address] Mejia: Biventricular systolic function is hyperkinetic with estimated left ejection fraction of 75%. Mild concentric left ventricular hypertrophy is present with evidence for diastolic dysfunction on Doppler interrogation of left ventricular inflow. Cardiac chamber dimensions are all at the upper limits of normal in size. The aortic root was mildly dilated 3.9 cm in diameter. The proximal portion of the ascending aorta did not appear to be dilated and there was not evidence for significant aortic insufficiency. Mild tricuspid insufficiency is present with an estimated peak systolic pressure of 30 mmHg, at the upper limits normal Plan: Continue to monitor for contrast nephropathy on top of his known CKD stage [address] Arndt and Dr. Mejia Physician Assessment Physician Assessment Lungs: clear Cor: reg A&R * As documented in our note above [facility] [employer] Jun 15, 2016 09:26 KELSEY MONTANA MD FACP [facility] Jun 15, 2016 17:06
[2016-06-15 10:00] LABS: CALCIUM 8.4 MG/DL (8.5-10.1); CREATININE SERUM 1.45 MG/DL (0.60-1.30); POTASSIUM 4.4 MMOL/L (3.6-5.0)
--- NOTE | 2016-06-15 10:41 | Discharge Summary-Hospitalist ---
Diagnosis/Chief Complaint Date of Admission Jun 09, 2016 at 10:36 Date of Discharge Admission Diagnosis 1. Diabetic foot ulceration likely polymicrobial with secondary infection and concern for osteomyelitis likely aggravated by peripheral vascular disease. While he currently qualifies for stage IV chronic renal disease will initiate IV fluids and as long as there is improvement in renal function will continue and advised proceeding with arteriography. The patient has mild dementia is oriented 2. We discussed the fact that if he has significant peripheral vascular disease which is likely his ulcerations will not heal and this infection will lead to the need for amputation. He understands that there is risk for progression of his renal disease with the small but real possibility of dialysis. In my estimation however the benefits are outweighed by this risk and may be his only hope at saving his leg and would be is only hope at maintaining ambulatory status which is of utmost importance to him. 2. After discussion as has been the case will continue DO NOT RESUSCITATE DO NOT intubate status. Discharge Diagnosis 1. Left diabetic foot infection with peripheral vascular disease status post successful left posterior tibial angioplasty. 2. Stage IV chronic renal disease s/p IV hydration 3. Type II diabetes mellitus Reason Hospital Visit/Course Mr. Pierce is an 85-year-old white male with long-standing hypertension and type II diabetes mellitus who's had nonhealing the left foot ulcer on the left great toe and left heel. He is being followed by our language specialist Dr. Espinal who after today's visit noted progression of erythema with increased drainage is malodorous. He had the appearance of increasing infection now. JESSI studies are suggestive of significant peripheral vascular disease as well around 0.5. The wound is deep enough that osteomyelitis is a concern for all these reasons treatment of cellulitis versus osteomyelitis and to facilitate angiography with consideration for for revascularization patient is being admitted. Patient does have a history of peripheral neuropathy and has been prison resident for several years. 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 Previous to prison placement he had had a long history of uncontrolled diabetes due to noncompliance he's had a previous history of depression but is been under control essentially remission since he's been under prison care. He's had several bouts of presumed diverticulitis treated with antibiotic therapy and has had several urinary tract infection. He has no past history of amputation and had no previous history of foot ulceration. Notes from 06/15/16: Chart Review: No fever Vitals stable Blood sugars satisfactory Dr. Arndt Review: Dr. Arndt states that pt can switch to po antibiotics and return to ID today. Doxycycline 100 BID for 14 days since MRSA was sensitive to this. Dr. Arndt reports there is no osteomyelitis of the heel. Patient Interview: Pt states that he feels good today. Dr. Armando discusses plans to return to [facility], and pt is agreeable with this plan. Pt states that his pain is manageable currently. no fever, vital signs stable, pleasant, oriented 3 Plan: DC skilled to ID Continued wound care with Dr. Arndt Doxycycline 100 BID for 14 days PT Scribed by Wenceslao Foster under the direct supervision of Dr. Armando. Hospital course: Patient had a lengthy hospital course he was admitted place and IV fluids to optimize creatinine to undergo an angioplasty of the lower extremity to help heal the diabetic ulcer. Dr. Arndt was consulted and debridement of the area yesterday with good results and antibiotic coverage was minimized to adjust to oral antibiotics of doxycycline 100 mg twice daily for a full [address] Arndt will see the patient at [facility] on skilled therapy to assure the ulcer heals. Long-term prognosis guarded considering advanced age and other comorbidities including vascular disease and renal insufficiency. Discharge Summary Discharge Physical Examination Allergies: Coded Allergies: NKANo Known Allergies (Verified Allergy, Unknown, 01/15/07) Vitals & I&Os Vital Signs Date Time Temp Pulse Resp B/P (MAP) Pulse Ox O2 Delivery O2 Flow Rate FiO2 06/15/16 08:42 97.4 78 12 147/70 96 Room Air Hospital Course Labs (last 24 hrs) Laboratory Tests 06/14/16 16:01: Glucometer 123H 06/14/16 20:03: Vancomycin Level Trough 23.7H 06/14/16 21:09: Glucometer 122H 06/15/16 05:23: Glucometer 111H 06/15/16 08:10: Sodium Level 139, Potassium Level 4.4, Chloride Level 110H, Carbon Dioxide Level 22, Anion Gap 7, Blood Urea Nitrogen 17, Creatinine 1.45H, Estimat Glomerular Filtration Rate 46, BUN/Creatinine Ratio 12, Glucose Level 121H, Calcium Level 8.4L, Vancomycin Level Trough 20.0 06/15/16 10:57: Glucometer 161H Microbiology 06/10/16 Anaerobic Culture - Final, Complete No anaerobes isolated Pending Labs Laboratory Tests 06/15/16 05:23: Glucometer 111 06/15/16 08:10: Sodium Level 139, Potassium Level 4.4, Chloride Level 110, Carbon Dioxide Level 22, Anion Gap 7, Blood Urea Nitrogen 17, Creatinine 1.45, Estimat Glomerular Filtration Rate 46, BUN/Creatinine Ratio 12, Glucose Level 121, Calcium Level 8.4, Vancomycin Level Trough 20.0 06/15/16 10:57: Glucometer 161 Discharge Home Medications: Active Scripts Active Doxycycline Monohydrate 100 Mg Capsule 100 Mg PO BID 14 Days Novolog (Insulin Aspart) 100 Unit/1 Ml Susp 8 Unit SC 0730 30 Days Aspirin EC (Aspirin) 81 Mg Tablet.dr 81 Mg PO DAILY 30 Days Clopidogrel (Clopidogrel Bisulfate) 75 Mg Tablet 75 Mg PO DAILY 30 Days Enoxaparin Sodium 40 Mg/0.4 Ml Syringe 40 Mg SC DAILY@1700 14 Days Reported Aricept (Donepezil HCl) 10 Mg Tablet 10 Mg PO HS Betadine (Povidone-Iodine) 3,780 Ml Solution TP PRN PAINT LEFT GREAT TOE AND HEEL ULCER WITH BETADINE WRAP WITH ROLLER GAUZE, CHANGE DAILY AND NEEDED. Lantus (Insulin Glargine,Hum.rec.anlog) 100 Unit/1 Ml Vial 30 Unit SQ 1700 Novolog (Insulin Aspart) 100 Unit/1 Ml Susp 8 Unit SQ 1630 Lantus (Insulin Glargine,Hum.rec.anlog) 100 Unit/1 Ml Vial 25 Unit SQ DAILY Zofran Odt (Ondansetron) 4 Mg Tab.rapdis 4 Mg PO Q4H PRN Hydrocortisone 453.6 Gm Cream..g. TOP PRN PRN Novolog (Insulin Aspart) 100 Unit/1 Ml Susp 10 Unit SQ 1130 Multivitamins with Minerals (Multivitamin with Minerals) 1 Each Tablet 1 Tab PO DAILY Guaifenesin Dm Syrup (Guaifenesin/Dextromethorphan) 5 Ml Syrup 10 Ml PO Q4H PRN Tylenol Extra Strength (Acetaminophen) 500 Mg Tablet 1,000 Mg PO Q4H PRN TAKES 2 (500MG) TABLETS Phenazopyridine Hcl 200 Mg Tablet 200 Mg PO TID PRN Instructions to patient/family Please see electonic discharge instructions given to patient. Clinical Quality Measures DVT/VTE Risk/Contraindication: Risk Factor Score Per Nursin RFS Level Per Nursing on Admit: 4+=Very High Contraindications-Mechi: Other *list below* Other: PT HAS PVD/ FOOT WOUNDS JOSE ARMANDO DO Jun 15, 2016 10:41
[2016-06-15] MEDS ORDERED: ENOX40DI8 SC (10:46)
[2016-06-15] MEDS ORDERED: ASPI-983 PO (10:46)
[2016-06-15] MEDS ORDERED: CLOP75TA28 PO (10:46)
[2016-06-15] MEDS ORDERED: INSU100V16 SC (10:46)
--- NOTE | 2016-06-15 10:48 | Discharge Inst-Skilled Nursing ---
Discharge Inst-Skilled NF Chief Complaint Mr. Pierce is an 85-year-old white male with long-standing hypertension and type II diabetes mellitus who's had nonhealing the left foot ulcer on the left great toe and left heel. He is being followed by our email deployment specialist Dr. Espinal who after today's visit noted progression of erythema with increased drainage is malodorous. He had the appearance of increasing infection now. JESSI studies are suggestive of significant peripheral vascular disease as well around 0.5. The wound is deep enough that osteomyelitis is a concern for all these reasons treatment of cellulitis versus osteomyelitis and to facilitate angiography with consideration for for revascularization patient is being admitted. Patient does have a history of peripheral neuropathy and has been care home resident for several years. 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 Previous to care home placement he had had a long history of uncontrolled diabetes due to noncompliance he's had a previous history of depression but is been under control essentially remission since he's been under care home care. He's had several bouts of presumed diverticulitis treated with antibiotic therapy and has had several urinary tract infection. He has no past history of amputation and had no previous history of foot ulceration. Notes from 06/15/16: Chart Review: No fever Vitals stable Blood sugars satisfactory Dr. Arndt Review: Dr. rAndt states that pt can switch to po antibiotics [facility]. Doxycycline 100 BID for 14 days since MRSA was sensitive to this. Dr. Arndt reports there is no osteomyelitis of the heel. Patient Interview: Pt states that he feels good today. Dr. Armando discusses plans to return to [facility], and pt is agreeable with this plan. Pt states that his pain is manageable currently. Plan: [place] [facility] to [facility] Continued wound care with Dr. Arndt Doxycycline 100 BID for 14 days PT Scribed by Wenceslao Foster under the direct supervision of Dr. Armando. Patient Instructions Patient Problems: foot cellulitis with wound DM dementia debility Consult/Follow Up/Orders Skilled NF Admit to: [facility] Certification (SNF) I certify that SNF services are required to be given on an inpatient basis because of the above named patient's need for correction care on a continuing basis for the conditions(s) for which he/she was receiving inpatient hospital services prior to his/her transfer to the SNF. Halfway Facility Order: Nursing Services, Corporate Travel Coordinator-Evaluate & Treat, Physical Therapy-Evaluate & Treat, Speech Language-Evaluate & Treat Discharge Diet: ADA Diet, Cardiac Diet Daily Activity as Tolerated: Yes New & Resume Previous Orders Stacy Armando Jun 15, 2016 10:47 STACY ARMANDO DO Jun 15, 2016 10:48
[2016-06-15] MEDS ORDERED: DOXY100C42 PO (10:50)
[2016-06-15] MEDS: inSUlin ASPART (NovoLOG) 1 UNIT/0.01 ML (CHARGE PER UNIT) SQ SCH (11:23)
[2016-06-15 12:00] VITALS: BP 161/73
[2016-06-15 12:48] VITALS: BP 161/73
[2016-06-17] MEDS ORDERED: VANCOMYCIN 1 GM/NS 250 ML IVPB IV SCH ×2 (10:00)
== END 2016-06-15 12:48 | DRG 253 ==
LOC: DELPENDDIS → 4TH 10:36 → ICU 06-10 13:30 → 4TH 06-10 17:15
PROVIDERS: ADMIT Internal Medicine; ATTEND Internal Medicine
PROC: 047S3ZZ Dilation of Left Posterior Tibial Artery, Percutaneous Approach (ICD-10-PCS; principal; 2016-06-10)
PROC: B41G1ZZ Fluoroscopy of Left Lower Extremity Arteries using Low Osmolar Contrast (ICD-10-PCS; 2016-06-10)
PROC: 0JBR0ZZ Excision of Left Foot Subcutaneous Tissue and Fascia, Open Approach (ICD-10-PCS; 2016-06-10)
DX: E11.52 Type 2 diabetes mellitus with diabetic peripheral angiopathy with gangrene (principal); L97.422 Non-pressure chronic ulcer of left heel and midfoot with fat layer exposed; L97.529 Non-pressure chronic ulcer of other part of left foot with unspecified severity; I70.244 Atherosclerosis of native arteries of left leg with ulceration of heel and midfoot; I70.245 Atherosclerosis of native arteries of left leg with ulceration of other part of foot; L03.116 Cellulitis of left lower limb; E11.42 Type 2 diabetes mellitus with diabetic polyneuropathy; E11.21 Type 2 diabetes mellitus with diabetic nephropathy; Z66 Do not resuscitate; I12.9 Hypertensive chronic kidney disease with stage 1 through stage 4 chronic kidney disease, or unspecified chronic kidney disease; N18.4 Chronic kidney disease, stage 4 (severe); I42.9 Cardiomyopathy, unspecified; B95.62 Methicillin resistant Staphylococcus aureus infection as the cause of diseases classified elsewhere; B96.4 Proteus (mirabilis) (morganii) as the cause of diseases classified elsewhere; F01.50 Vascular dementia, unspecified severity, without behavioral disturbance, psychotic disturbance, mood disturbance, and anxiety; B35.1 Tinea unguium; E78.00 Pure hypercholesterolemia, unspecified; N32.81 Overactive bladder; K21.9 Gastro-esophageal reflux disease without esophagitis; I07.1 Rheumatic tricuspid insufficiency; M54.9 Dorsalgia, unspecified; Z91.19 Patient's noncompliance with other medical treatment and regimen
CPT/HCPCS: 36247; 36415; 37228; 75710; 80048; 80053; 80202; 82962; 83735; 85025; 85027; 85652; 87070; 87075; 87077; 87186; 87205; 93005

== ENCOUNTER 2016-08-22 10:52 | Emergency (ER) | payer MEDICARE, OTHER ==
[~2016-08-22] VITALS: Ht 182.9 cm; Wt 108.9 kg
[2016-08-22 10:52] VITALS: BP 141/71
[~2016-08-22 10:52] MED LIST changes: +ASPI-983 PO; +CLOP75TA28 PO; +DONE10TA12 PO; +DOXY100C42 PO; +ENOX40DI8 SC; +INSU100V6 SQ; +POVI3780 TP
[2016-08-22 11:27] LABS: BASOPHILS % (AUTO) 0 % (0-10); EOSINOPHILS # (AUTO) 0.4 10^3/uL (0.0-0.3); EOSINOPHILS % (AUTO) 4 % (0-10); LYMPHOCYTES # (AUTO) 2.1 X 10^3 (1.0-4.0); LYMPHOCYTES % (AUTO) 20 % (12-44); MEAN CORPUSCULAR HEMOGLOBIN 32 PG (25-34); MEAN CORPUSCULAR HGB CONC 34 G/DL (32-36); MEAN CORPUSCULAR VOLUME 95 FL (80-99); MEAN PLATELET VOLUME 9.2 FL (7.4-10.4); MONOCYTES # (AUTO) 1.3 X 10^3 (0.0-1.0); MONOCYTES % (AUTO) 12 % (0-12); NEUTROPHILS # (AUTO) 6.9 X 10^3 (1.8-7.8); NEUTROPHILS % (AUTO) 65 % (42-75); PLATELET COUNT 309 10^3/uL (130-400); RED BLOOD COUNT 3.21 10^6/uL (4.35-5.85); RED CELL DISTRIBUTION WIDTH 12.3 % (10.0-14.5); WHITE BLOOD COUNT 10.7 10^3/uL (4.3-11.0)
[2016-08-22 11:54] LABS: ALBUMIN 3.4 G/DL (3.2-4.5); BILIRUBIN,TOTAL 0.4 MG/DL (0.1-1.0); CALCIUM 9.3 MG/DL (8.5-10.1); CREATININE SERUM 1.74 MG/DL (0.60-1.30); POTASSIUM 4.9 MMOL/L (3.6-5.0); TOTAL PROTEIN 7.3 G/DL (6.4-8.2)
--- NOTE | 2016-08-22 13:16 | ED General ---
General Chief Complaint: Dizziness/Syncope Stated Complaint: SYNCOPE Nursing Triage Note: ARRIVED VIA EMS FROM [facility]. STAFF REPORTS PT HAD A BM AND BECAME VERY PALE AND NOT FEELING WELL. HAD A 2ND LOOSE STOOL QUICKLY AFTER AND THEN HAD A SYNCAPLE EPISISODE. STAFF ALSO REPORTS LARGE WOUND ON LEFT HEEL BEING TREATED BY DR FINCH. WOUND HAD A TERRIBLE SMELL THIS AM AND DR FINCH CHANGED HIS DRESSING TO 1/2 DAKINS. Nursing Sepsis Screen: No Definite Risk Source of Information: Patient Exam Limitations: No Limitations History of Present Illness Time Seen by Provider: 13:10 Initial Comments Patient's an 86-year-old white male known to me over some years. He was recently in the hospital with a wound on his left foot. He ultimately underwent endovascular revascularization. He lives at [facility]. I spoke to Dr. Mejia who states that he saw him last week and found the lesion on his toe to be nicely healed and that the lesion on his heel was granulating in and clean. We are told secondhand that there was a report of odor from the foot by the residential staff this morning they were instructed to wash this off with a Dakin solution and redress him. This apparently happened but for reasons that were not clear about her is the patient he was sent here. Timing/Duration: Other Associated Systoms: Denies Symptoms Allergies and Home Medications Allergies Coded Allergies: Fabian Known Allergies (Verified Allergy, Unknown, 01/15/07) Home Medications Acetaminophen 500 Mg Tablet, 1,000 MG PO Q4H PRN for PAIN, (Reported) TAKES 2 (500MG) TABLETS Aspirin 81 Mg Tablet.dr, 81 MG PO DAILY for 30 Days Prescribed by: JOSE ARMANDO on 06/15/16 1046 Clopidogrel Bisulfate 75 Mg Tablet, 75 MG PO DAILY for 30 Days Prescribed by: JOSE ARMANDO on 06/15/16 1046 Donepezil HCl 10 Mg Tablet, 10 MG PO HS, (Reported) Doxycycline Monohydrate 100 Mg Capsule, 100 MG PO BID for 14 Days Prescribed by: JOSE ARMANDO on 06/15/16 1050 Enoxaparin Sodium 40 Mg/0.4 Ml Syringe, 40 MG SC DAILY@1700 for 14 Days Prescribed by: JOSE ARMANDO on 06/15/16 1046 Guaifenesin/Dextromethorphan 5 Ml Syrup, 10 ML PO Q4H PRN for COUGH, (Reported) Hydrocortisone 453.6 Gm Cream..g., TOP PRN PRN for DERMATITIS, (Reported) Insulin Aspart 100 Unit/1 Ml Susp, 10 UNIT SQ 1130, (Reported) Insulin Aspart 100 Unit/1 Ml Susp, 8 UNIT SQ 1630, (Reported) Insulin Aspart 100 Unit/1 Ml Susp, 8 UNIT SC 0730 for 30 Days Prescribed by: JOSE ARMANDO on 06/15/16 1046 Insulin Glargine,Hum.rec.anlog 100 Unit/1 Ml Vial, 25 UNIT SQ DAILY, (Reported) Insulin Glargine,Hum.rec.anlog 100 Unit/1 Ml Vial, 30 UNIT SQ 1700, (Reported) Multivitamin with Minerals 1 Each Tablet, 1 TAB PO DAILY, (Reported) Ondansetron 4 Mg Tab.rapdis, 4 MG PO Q4H PRN for NAUSEA/VOMITING, (Reported) Phenazopyridine Hcl 200 Mg Tablet, 200 MG PO TID PRN for URINARY PAIN, (Reported ) Povidone-Iodine 3,780 Ml Solution, TP PRN, (Reported) PAINT LEFT GREAT TOE AND HEEL ULCER WITH BETADINE WRAP WITH ROLLER GAUZE, CHANGE DAILY AND NEEDED. Constitutional: see HPI EENTM: no symptoms reported Respiratory: no symptoms reported Cardiovascular: no symptoms reported Gastrointestinal: no symptoms reported Genitourinary: no symptoms reported Musculoskeletal: no symptoms reported Skin: no symptoms reported Psychiatric/Neurological: No Symptoms Reported Hematologic/Lymphatic: No Symptoms Reported Immunological/Allergic: no symptoms reported Past Zvimrbr-Kjhqnk-Znnoti Hx Patient Social History Alcohol Use: Denies Use Recreational Drug Use: No Smoking Status: Unknown if Ever Smoked Recent Foreign Travel: No Contact w/Someone Who Travel: No Recent Infectious Disease Expo: No Recent Hopitalizations: Yes Immunizations Up To Date Tetanus Booster (TDap): Unknown Date of Pneumonia Vaccine: Feb 02, 2012 Date of Influenza Vaccine: Jan 27, 2016 Seasonal Allergies Seasonal Allergies: No Surgeries HX Surgeries: Yes Surgeries: Gallbladder Respiratory Hx Respiratory Disorders: No Cardiovascular Hx Cardiac Disorders: Yes (ARRHYTHMIA, HYPERKALEMIA DUE TO CHRONIC RENAL FAILURE) Cardiac Disorders: Cardiomyopathy, High Cholesterol, Hypertension, Irregular Heartbeat Neurological Hx Neurological Disorders: Yes Neurological Disorders: Dementia Reproductive System Hx Reproductive Disorders: No Sexually Transmitted Disease: No HIV/AIDS: No Genitourinary Hx Genitourinary Disorders: Yes (DIABETIC NEPHROPATHY; OVERACTIVE BLADDER/ INCONTINENCE) Genitourinary Disorders: Bladder Infection, Renal Failure Gastrointestinal Hx Gastrointestinal Disorders: Yes Gastrointestinal Disorders: Gastroesophageal Reflux Musculoskeletal Hx Musculoskeletal Disorders: Yes (POOR AMBULATION; CHRONIC GENERALIZED PAIN) Musculoskeletal Disorders: Chronic Back Pain Endocrine Hx Endocrine Disorders: Yes (IDDM) Endocrine Disorders: Diabetes, Non-Insulin dep HEENT HX ENT Disorders: Yes (DYSPHAGIA) Loss of Vision: Denies Hearing Impairment: Denies Cancer Hx Cancer: No Psychosocial Hx Psychiatric Problems: Yes Behavioral Health Disorders: Anxiety Integumentary HX Skin/Integumentary Disorder: No Skin/Integumentary Disorders: Recent Skin Changes Blood Transfusions Hx Blood Disorders: No Family Medical History Family Medial History: Patient reports no known family medical history. Physical Exam Vital Signs Vital Sign - Last 12Hours 08/22/16 10:52 Temp 98.0 Pulse 78 Resp 16 B/P (MAP) 141/71 Capillary Refill : Less Than 3 Seconds General Appearance: Other (the patient was quite vague to questioning) Eyes: Bilateral Eye Normal Inspection HEENT: Normal ENT Inspection Neck: Full Range of Motion, Normal Inspection, Non Tender, Supple, Carotid Bruit Respiratory: Chest Non Tender, Lungs Clear, Normal Breath Sounds, No Accessory Muscle Use, No Respiratory Distress Cardiovascular: Regular Rate, Rhythm, No Edema, No Gallop, No JVD, No Murmur, Normal Peripheral Pulses Gastrointestinal: Normal Bowel Sounds, No Organomegaly, No Pulsatile Mass, Non Tender, Soft Extremity: Normal Capillary Refill, Normal Inspection, Normal Range of Motion, Non Tender, No Calf Tenderness, No Pedal Edema Neurologic/Psychiatric: Disoriented x3 Progress/Results/Core Measures Results/Orders Lab Results Laboratory Tests Test 08/22/16 11:19 Range/Units White Blood Count 10.7 4.3-11.0 10^3/uL Red Blood Count 3.21 L 4.35-5.85 10^6/uL Hemoglobin 10.4 L 13.3-17.7 G/DL Hematocrit 31 L 40-54 % Mean Corpuscular Volume 95 80-99 FL Mean Corpuscular Hemoglobin 32 25-34 PG Mean Corpuscular Hemoglobin Concent 34 32-36 G/DL Red Cell Distribution Width 12.3 10.0-14.5 % Platelet Count 309 130-400 10^3/uL Mean Platelet Volume 9.2 7.4-10.4 FL Neutrophils (%) (Auto) 65 42-75 % Lymphocytes (%) (Auto) 20 12-44 % Monocytes (%) (Auto) 12 0-12 % Eosinophils (%) (Auto) 4 0-10 % Basophils (%) (Auto) 0 0-10 % Neutrophils # (Auto) 6.9 1.8-7.8 X 10^3 Lymphocytes # (Auto) 2.1 1.0-4.0 X 10^3 Monocytes # (Auto) 1.3 H 0.0-1.0 X 10^3 Eosinophils # (Auto) 0.4 H 0.0-0.3 10^3/uL Basophils # (Auto) 0.0 0.0-0.1 10^3/uL Sodium Level 131 L 135-145 MMOL/L Potassium Level 4.9 3.6-5.0 MMOL/L Chloride Level 96 L 98-107 MMOL/L Carbon Dioxide Level 25 21-32 MMOL/L Anion Gap 10 5-14 MMOL/L Blood Urea Nitrogen 36 H 7-18 MG/DL Creatinine 1.74 H 0.60-1.30 MG/DL Estimat Glomerular Filtration Rate 37 BUN/Creatinine Ratio 21 Glucose Level 166 H 70-105 MG/DL Calcium Level 9.3 8.5-10.1 MG/DL Total Bilirubin 0.4 0.1-1.0 MG/DL Aspartate Amino Transf (AST/SGOT) 18 5-34 U/L Alanine Aminotransferase (ALT/SGPT) 14 0-55 U/L Alkaline Phosphatase 80 40-136 U/L Total Protein 7.3 6.4-8.2 G/DL Albumin 3.4 3.2-4.5 G/DL My Orders Orders - MARÍA ROBISON MD Cbc With Automated Diff (08/22/16 11:22) Comprehensive Metabolic Panel (08/22/16 11:22) Ua Culture If Indicated (08/22/16 11:22) Vital Signs/I&O Vital Sign - Last 12Hours 08/22/16 10:52 Temp 98.0 Pulse 78 Resp 16 B/P (MAP) 141/71 Blood Pressure Mean: 94 Departure Communication Progress Notes Discussed with Dr. Mejia. His lab work and vital signs appear about his usual. He will be sent back to [facility] Impression Impression: Primary Impression: peripheral vascular disease Additional Impression: ischemic ulcers left foot Disposition: Condition: Stable/Unchanged Departure-Patient Inst. Decision time for Depature: 13:18 Referrals: JOSE MEJIA MD (PCP/Family) Primary Care Physician Add. Discharge Instructions: All discharge instructions reviewed with patient and/or family. Voiced understanding. Resume previous wound care and maintenance orders MARÍA ROBISON MD Aug 22, 2016 13:16
== END 2016-08-22 14:36 | disposition home or self-care (01) ==
LOC: EDUNIT# 10:52 → ER 10:53
DX: E11.621 Type 2 diabetes mellitus with foot ulcer (principal); I73.9 Peripheral vascular disease, unspecified; L97.529 Non-pressure chronic ulcer of other part of left foot with unspecified severity; I10 Essential (primary) hypertension; E11.21 Type 2 diabetes mellitus with diabetic nephropathy; Z79.4 Long term (current) use of insulin; Z79.82 Long term (current) use of aspirin
CPT/HCPCS: 36415; 80053; 85025; 99283

== ENCOUNTER → 2016-08-27 | Outpatient (CLI) | payer MEDICARE, OTHER ==
[2016-08-27 11:07] LABS: BILIRUBIN,URINE NEGATIVE (NEGATIVE); KETONES,URINE NEGATIVE (NEGATIVE); LEUKOCYTE ESTERASE ,URINE 2+ (NEGATIVE); NITRITE,URINE NEGATIVE (NEGATIVE); PH,URINE 6 (5-9); PROTEIN,URINE 2+ (NEGATIVE); UROBILINOGEN,URINE NORMAL (NORMAL)
[2016-08-27 12:32] LABS: WBC,URINE >100 /HPF
== END ==
LOC: CVS 08:00
PROVIDERS: ATTEND Internal Medicine
DX: R35.0 Frequency of micturition (principal)
CPT/HCPCS: 81000; 87077; 87088; 87186

== ENCOUNTER → 2016-11-09 | Outpatient (CLI) | payer MEDICARE, OTHER ==
[2016-11-09 19:52] LABS: BILIRUBIN,URINE NEGATIVE (NEGATIVE); KETONES,URINE NEGATIVE (NEGATIVE); LEUKOCYTE ESTERASE ,URINE 3+ (NEGATIVE); NITRITE,URINE NEGATIVE (NEGATIVE); PH,URINE 5 (5-9); PROTEIN,URINE 2+ (NEGATIVE); UROBILINOGEN,URINE NORMAL (NORMAL); WBC,URINE TNTC /HPF
== END ==
LOC: CVS 19:38
PROVIDERS: ATTEND Internal Medicine
DX: N39.0 Urinary tract infection, site not specified (principal); N17.9 Acute kidney failure, unspecified
CPT/HCPCS: 81000; 87077; 87088; 87186

== ENCOUNTER → 2017-02-18 | Outpatient (CLI) | payer MEDICARE, OTHER ==
[2017-02-18 21:11] LABS: BILIRUBIN,URINE NEGATIVE (NEGATIVE); KETONES,URINE NEGATIVE (NEGATIVE); LEUKOCYTE ESTERASE ,URINE 3+ (NEGATIVE); NITRITE,URINE NEGATIVE (NEGATIVE); PH,URINE 5 (5-9); PROTEIN,URINE 3+ (NEGATIVE); UROBILINOGEN,URINE NORMAL (NORMAL)
[2017-02-18 21:40] LABS: WBC,URINE >100 /HPF
--- NOTE | 2017-02-20 20:48 | Physician Query-Final Dx ---
GUILLE ARNOLD 02/20/178: Clinic Account Progress/Dx Physician Query: Please give diagnosis Need dx for UA, urine culture and wound culture Date of Service Feb 18, 2017 at 20:23 JOSE RYAN MD 02/21/17 1624: Clinic Account Progress/Dx DIAGNOSIS: Diagnosis urinary incontinence with foul smelling urine. GUILLE ARNOLD Feb 20, 2017 20:48 JOSE RYAN MD Feb 21, 2017 16:24
== END ==
LOC: CVS 20:23
PROVIDERS: ATTEND Internal Medicine
DX: R32 Unspecified urinary incontinence (principal); R82.99 Other abnormal findings in urine
CPT/HCPCS: 81000; 87070; 87075; 87077; 87088; 87186; 87205